=== PATIENT | female | born 1945 | race Caucasian/White ===

== ENCOUNTER 2017-11-13 15:15 | Observation (INO) ==
--- NOTE | 2017-11-13 18:18 | Emergency Department Note ---
Disposition Clinical Impression: DVT (deep venous thrombosis) Qualifiers: DVT location: lower extremity Affected thrombotic vein of extremity: unspecified vein of extremity Chronicity: unspecified Laterality: right Qualified Code(s): I82.401 - Acute embolism and thrombosis of unspecified deep veins of right lower extremity Chest pain Qualifiers: Chest pain type: unspecified Qualified Code(s): R07.9 - Chest pain, unspecified Disposition: Admitted As Inpatient Condition: Fair Time of Disposition: 22:27 Extremity Problem HPI - General Chief complaint: ED Extremity Problem,Nontraumatic Stated complaint: left leg pain,swelling Time Seen by Provider: 11/13/17 18:03 Source: patient Mode of arrival: ambulatory Limitations: no limitations Nursing Notes Reviewed: Yes Vital Signs Reviewed: Yes - History of Present Illness HPI Narrative: 72-year-old female history of diabetes and hypertension presents for evaluation of left leg pain and redness. Patient states onset initially was a couple weeks ago. At that time the patient states she had a biopsy of skin lesions on her left lower leg with resulting came back inconclusive. Patient has not seen a landscaping supervisor. Patient was seen at urgent care yesterday and was placed on antibiotics due to the redness and was discharged to get an ultrasound of the leg. Patient does note some asymmetric leg swelling. Patient denies history of DVT or PE. Patient reported some fevers. Patient denies any chest pain or breath. Patient states that she has had 3 doses of doxycycline did help with her left lower leg redness. Patient initially states that the lesions appeared purple and raised. Patient is also said that they were itchy but has since improved. Pain Scale: 6 - Related Data Home Medications Medication Instructions Recorded Confirmed Aspirin 81 mg PO DAILY 06/30/16 11/13/17 GlipiZIDE [Glipizide Xl] 5 mg PO DAILY 06/30/16 11/13/17 Isosorbide MONOnitrate (24 HR) 30 mg PO DAILY 06/30/16 11/13/17 [Imdur] Nitroglycerin 1 - 2 spray PO AD PRN 06/30/16 11/13/17 Omeprazole [PriLOSEC] 20 mg PO DAILY 06/30/16 11/13/17 Rosuvastatin [Crestor] 40 mg PO HS 06/30/16 11/13/17 Trazodone HCl 200 mg PO HS 06/30/16 11/13/17 Venlafaxine XR (24 HR) [Effexor Xr] 150 mg PO DAILY 06/30/16 11/13/17 carBAMazepine [Tegretol] 400 mg PO DAILY 06/30/16 11/13/17 metFORMIN [Glucophage] 1,000 mg PO BIDWM 06/30/16 11/13/17 Buspirone HCl [Buspar] 5 mg PO TID PRN 11/22/16 11/13/17 Irbesartan [Avapro] 150 mg PO DAILY 05/07/17 11/13/17 Oxybutynin Chloride [Ditropan Xl] 10 mg PO DAILY 05/07/17 11/13/17 amLODIPine [Norvasc] 5 mg PO DAILY 05/07/17 11/13/17 Magnesium Oxide [Mag-Ox] 400 mg PO DAILY 11/13/17 11/13/17 Melatonin 10 mg PO HS PRN 11/13/17 11/13/17 Metoprolol XL (24 HR) Succ [Toprol 25 mg PO DAILY 11/13/17 11/13/17 XL] Previous Rx's Medication Instructions Recorded Tamoxifen Citrate 20 mg PO DAILY #90 tablet 10/09/17 Doxycycline 100 mg PO BID #14 capsule 11/11/17 Allergies Allergy/AdvReac Type Severity Reaction Status Date / Time nabumetone [From Relafen] Allergy Rash Verified 11/13/17 15:36 Penicillins [PCN] Allergy See Verified 11/13/17 15:36 Comments Sulfa (Sulfonamide Allergy Rash Verified 11/13/17 15:36 Antibiotics) Tetanus Vaccines and Toxoid Allergy See Verified 11/13/17 15:36 [Tetanus Vaccines & Toxoid] Comments All systems ED: reviewed and negative except as stated. 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 Absent: symmetric chest wall rise - Respiratory Respiratory exam: Present: normal lung sounds bilaterally. Absent: respiratory distress - Cardiovascular Cardiovascular exam: Present: regular rate, normal rhythm. Absent: systolic murmur - Abdominal Exam Abdominal exam: Present: soft, Non-Tender - Expanded Lower Extremity Exam Lower leg exam: Present: other (Numerous excoriations of the left lower leg with faint erythema. No palpable purulent discharge. No crepitus. Neurovascularly intact. No calf tenderness.) - Back Exam Back exam: Present: normal inspection - Neurological Exam Neurological exam: Present: alert - Skin Skin exam: Present: warm Course Course Narrative: Patient seen and examined. Patient appears to be in no acute distress. Patient 's symptoms are less consistent with a DVT however that is in the differential. Patient will get a venous Doppler of her lower leg. Disposition pending. - Reevaluation(s) Reevaluation #1: Patient did have a positive DVT in the popliteal on the right leg. Patient now states that she has been having chest pain shortness of breath for the past 3 days. Denies history of blood clots in the past. Patient will get a more thorough cardiac evaluation with EKG, troponin and BNP as well as a CTA the chest. Time: 20:58 Reevaluation #2: Patient seen and examined. Patient updated on plan of care. Time: 22:48 Vital Signs Temperature 98.1 F 11/13/17 15:33 Pulse Rate 103 11/13/17 15:33 Respiratory Rate 20 11/13/17 15:33 Blood Pressure 153/73 11/13/17 15:33 O2 Sat by Pulse Oximetry 97 11/13/17 15:33 Temperature 98.1 F 11/13/17 15:33 Pulse Rate 82 11/13/17 21:43 Respiratory Rate 16 11/13/17 23:28 Blood Pressure 146/72 11/13/17 23:28 O2 Sat by Pulse Oximetry 99 11/13/17 21:43 Oxygen Delivery Oxygen Delivery Room Air Extremity Problem, Nontraumati - MDM Narrative Medical decision making narrative: 72-year-old female presents for evaluation of skin lesions on the lower leg. Through the course of the evaluation the patient was noted have a DVT which may or may not of an chronic in the popliteal. Patient's also been complaining of chest pain short of breath for the past 3 days. Patient was started on Lovenox. Patient had a CT of the chest was done revealing acute pulmonary embolism. Patient has been complaining of chest pain and would warrant more further cardiopulmonary evaluation. - Medical Records Medical records reviewed: Yes I reviewed the patient's medical records. - Lab Data Lab results reviewed: Yes I reviewed the patient's lab results. Result diagrams: 11/13/17 20:23 11/13/17 20:23 Lab Results 11/13/17 11/13/17 11/13/17 Range/Units 20:05 20:05 20:23 WBC 5.9 (4.3-11.1) K/mcL RBC 3.17 L (3.82-4.97) M/mcL Hgb 9.8 L (11.5-15.4) g/dL Hct 29.5 L (35.3-44.9) % MCV 93.1 (83.0-100.0) fL MCH 30.9 (28.0-33.3) pg MCHC 33.2 (31.6-35.5) g/dL RDW 12.4 (11.5-14.5) % Plt Count 169 (140-400) K/mcL MPV 9.7 (9.4-12.4) fL Immature Gran % 0.3 (0-4) % Seg Neutrophils % 48.4 % Lymphocytes % 34.7 % Monocytes % 9.1 % Eosinophils % 7.0 % Basophils % 0.5 % Neutrophils # 2.8 (1.6-8.9) K/mcL Lymphocytes # 2.0 (0.6-4.6) K/mcL Monocytes # 0.5 (0.0-1.3) K/mcL Eosinophils # 0.4 (0.0-0.6) K/mcL Basophils # 0.0 (0.0-0.2) K/mcL PT 11.7 (9.4-12.1) Seconds INR 1.1 APTT 24.6 L (26.0-36.0) Seconds Sodium (136-145) mEq/L Potassium (3.5-5.1) mEq/L Chloride (98-107) mEq/L Carbon Dioxide (23-29) mEq/L BUN (8-23) mg/dL Creatinine (0.60-1.20) mg/dL Est GFR ( Amer) (> 60) Est GFR (Non-Af Amer) (> 60) BUN/Creatinine Ratio (6-26) Glucose (70-105) mg/dL Calculated Osmolality (280-300) Calcium (8.6-10.3) mg/dL Troponin I (< 0.04) ng/mL B-Natriuretic Peptide 21 (Less than 100) pg/mL 11/13/17 Range/Units 20:23 WBC (4.3-11.1) K/mcL RBC (3.82-4.97) M/mcL Hgb (11.5-15.4) g/dL Hct (35.3-44.9) % MCV (83.0-100.0) fL MCH (28.0-33.3) pg MCHC (31.6-35.5) g/dL RDW (11.5-14.5) % Plt Count (140-400) K/mcL MPV (9.4-12.4) fL Immature Gran % (0-4) % Seg Neutrophils % % Lymphocytes % % Monocytes % % Eosinophils % % Basophils % % Neutrophils # (1.6-8.9) K/mcL Lymphocytes # (0.6-4.6) K/mcL Monocytes # (0.0-1.3) K/mcL Eosinophils # (0.0-0.6) K/mcL Basophils # (0.0-0.2) K/mcL PT (9.4-12.1) Seconds INR APTT (26.0-36.0) Seconds Sodium 137 (136-145) mEq/L Potassium 3.6 (3.5-5.1) mEq/L Chloride 103 (98-107) mEq/L Carbon Dioxide 25 (23-29) mEq/L BUN 21 (8-23) mg/dL Creatinine 1.05 (0.60-1.20) mg/dL Est GFR ( Amer) > 60 (> 60) Est GFR (Non-Af Amer) 52 L (> 60) BUN/Creatinine Ratio 20 (6-26) Glucose 174 H (70-105) mg/dL Calculated Osmolality 291 (280-300) Calcium 8.2 L (8.6-10.3) mg/dL Troponin I < 0.03 (< 0.04) ng/mL B-Natriuretic Peptide (Less than 100) pg/mL - EKG Data EKG attestation: Yes I reviewed and interpreted this EKG. EKG shows normal: sinus rhythm Rate: normal Rhythm: NSR [place]/QRS: normal Interpretation: no acute changes S.B.APernell - S.B.Michael Situation: Demographics Background: Presenting Complaint Assessment: Vital Signs, Course and respsone to treatment, Patient/Family Expectation Recommendation: Barrier(s) to disposition, Recommendation based on pending studies, treatments, or consults S.B.A.Sofia Report Given to: Dr. Liz Caba Repor Time: 22:27 Attestation Statement - Attestation Attestation: I examined this patient and my medical decision-making was reviewed with the Resident Physician, Dr. Rhodes. I agree with the documented findings, disposition and treatment plan as described except to the extent set forth below. Patient is a 72-year-old white female who presents to the emergency department today for complaints of left calf and posterior knee pain as well as swelling and redness. Patient was seen and had a skin biopsy performed a few weeks ago and since that time over the past few days she has developed some erythema warmth and some soft tissue swelling distal to the area on the anterolateral aspect of her lower leg. Patient was started on antibiotics by her primary care physician and patient states over the past 3 days has developed more sharp occasional stabbing pain to the left calf and posterior knee as well as reports of chest pain and dyspnea worsened with exertion. Patient has a history of diabetes and hypertension. Patient denies any prior DVT or PE and no prior cardiac history. I agree with patient's physical exam findings as documented. Patient with mild sinus tachycardia on arrival but otherwise vitals stable. Patient's EKG shows a normal sinus rhythm without acute ischemia. Patient had lab evaluation followed by a venous Doppler ultrasound. Doppler did show evidence of positive DVT which is a first time thrombus for the patient. GFR is within normal limits so we will treat with Lovenox. Due to patient's chest pain or shortness of breath patient underwent CT imaging of the chest which was unremarkable. Patient was given aspirin and will be admitted for further evaluation of DVT as well as serial enzymes and further evaluation for chest pain and shortness of breath. Case was discussed with the hospitalist to accept the patient for further medical management.
[2017-11-13 20:38] LABS: Basophils % 0.5 %; Eosinophils # 0.4 K/mcL (0.0-0.6); Hematocrit 29.5 % (35.3-44.9); Hemoglobin 9.8 g/dL (11.5-15.4); Immature Granulocytes % 0.3 % (0-4); Lymphocytes % 34.7 %; Mean Corpuscular HGB Conc 33.2 g/dL (31.6-35.5); Mean Corpuscular Hemoglobin 30.9 pg (28.0-33.3); Mean Corpuscular Volume 93.1 fL (83.0-100.0); Mean Platelet Volume 9.7 fL (9.4-12.4); Monocytes # 0.5 K/mcL (0.0-1.3); Monocytes % 9.1 %; Neutrophils # 2.8 K/mcL (1.6-8.9); Platelet Count 169 K/mcL (140-400); Red Blood Count 3.17 M/mcL (3.82-4.97); Red Cell Distribution Width 12.4 % (11.5-14.5); Segmented Neutrophils % 48.4 %
[2017-11-13] MEDS: Insulin LISPRO 300 UNITS/3 ML VIAL SQ SCH (21:00)
[2017-11-13 21:14] LABS: INR 1.1; Prothrombin Time 11.7 Seconds (9.4-12.1)
[2017-11-13 21:16] LABS: Activated Partial Thrombo Time 24.6 Seconds (26.0-36.0)
[2017-11-13 21:17] LABS: BUN/Creatinine Ratio 20 (6-26); Blood Urea Nitrogen 21 mg/dL (8-23); Calcium 8.2 mg/dL (8.6-10.3); Carbon Dioxide 25 mEq/L (23-29); Chloride 103 mEq/L (98-107); Glucose 174 mg/dL (70-105); Osmolality,Calculated 291 (280-300); Potassium 3.6 mEq/L (3.5-5.1); Sodium 137 mEq/L (136-145); eGFR For African Americans > 60 (> 60); eGFR For Non-African Americans 52 (> 60)
[2017-11-13 21:25] LABS: Troponin I < 0.03 ng/mL (< 0.04)
[2017-11-13] MEDS ORDERED: *HR* Enoxaparin 80 MG/0.8 ML SYRINGE SQ STA (22:24)
[2017-11-13] MEDS ORDERED: Aspirin 325 MG TABLET PO ONE (22:51)
[2017-11-13] MEDS ORDERED: *HR* Dextrose 50 % in Water (Syg) 50 ML SYRINGE IVP PRN (22:52)
[2017-11-13] MEDS ORDERED: Dextrose Gel 15 GM/37.5 ML TUBE PO PRN ×2 (22:52)
[2017-11-13] MEDS ORDERED: Naloxone 0.4 MG/ML INJ IVP PRN (22:52)
[2017-11-13] MEDS ORDERED: D5% in Water 1,000 ML IVC PRN (22:52)
[2017-11-13] MEDS ORDERED: Ondansetron 4 MG/2 ML VIAL IVP PRN (22:52)
--- NOTE | 2017-11-13 23:02 | Internal Med History&Physical ---
<Hu Verdugo - Last Filed: 11/13/17 22:57> Date of Encounter: 11/13/17 Time of Encounter: 22:57 Assessment and Plan (1) Chronic deep vein thrombosis (DVT) Current visit: Yes Status: Acute Presents today with Left lower extremity pain for 3 weeks. An Doppler US was completed with a preliminary result of LEFT LOWER EXTREMITY APPEARS POSITIVE CHRONIC PARTIAL DVT LEFT POPLITEAL ARTERY ONLY -Continue weight based lovenox; plan to change to PO xarelto prior to discharge Qualifiers: DVT location: lower extremity Affected thrombotic vein of extremity: other lower extremity vein Laterality: left Qualified Code(s): I82.592 - Chronic embolism and thrombosis of other specified deep vein of left lower extremity (2) Subacute dermatitis Current visit: Yes Status: Acute Multiple diffuse papular lesions on BLE. Recent biopsy reveals subacute dermatitis. Does not appear infective, lesions are not pruritic. Unclear if allergic or contact. -Topical steroids BID 2.5% hydrocortisone (3) Shortness of breath Current visit: Yes Status: Acute intermittent SOB X3 weeks. SOB is non-exertional. She denies any systemic symptoms, or coughs, chills, fevers or aches/pains. She does have a h/o anxiety and reports that she sometimes feels SOB when anxious. Not in respiratory distress, lungs CTA AP&L -Spo2 monitoring, respiratory support per NC PRN; goal Spo2 greater than 92% -TTE to r/o cardiac cause of shortness of breath -troponin f/u. Initial troponin negative -325 ASA now, then resume 81mg daily home dose -Duonebs Q4hr PRN for shortness of breath (4) Diabetes Current visit: Yes Status: Acute Sliding scale insulin coverage Qualifiers: Diabetes mellitus type: type 2 Diabetes mellitus complication status: without complication Diabetes mellitus ferry terminal supervisor insulin use: without ferry terminal supervisor use Qualified Code(s): E11.9 - Type 2 diabetes mellitus without complications (5) Anemia Current visit: Yes Status: Acute Chronic, stable. No active bleeding. Denies hematemesis, hematochezia or melena. Hemodynamically stable CBCD in the am Qualifiers: Anemia type: unspecified type Qualified Code(s): D64.9 - Anemia, unspecified (6) DVT prophylaxis Current visit: Yes Status: Acute weight based lovenox as the patient has a chronic DVT Internal Medicine - H&P: HPI Chief complaint: leg pain, intermittent shortness of breath Admitted From: Home Plans for Post Hospital Care: Home History of present illness: Ms. Florence is a 72 year old female with a PMH of DM, HTN, breast cancer, anxiety and depression. She presents to [facility] today with left leg pain and redness as well as multiple skin lesions. She reports that she has had the skin lesion for a couple of weeks and that she recently had a skin biopsy. The biopsy resulted in subacute dermatitis. Additionally, she is concerned as she has also had intermittent shortness of breath for the last three weeks. D/t the redness there is some concern for DVT and PE. CTA completed in ED found to be negative. Doppler study completed left lower extremity shows chronic DVT. Patient denies any constitutional symptoms, denies chest pain, abdominal pain, vomiting or diarrhea. However she does admit to some nausea. Past Med Surg Social Fam HX - Past Medical History Medical history: diabetes, hypertension, other Psychiatric history: anxiety, depression - Past Surgical History Surgical History: appendectomy, breast surgery, orthopedic, other - Social History Smoking Status: Never smoker Smokeless Tobacco Status: No Alcohol use: none Drug use: none - Additional Family History Additional family history: Noncontributory Internal Medicine - H&P: Meds Aspirin 81 mg PO DAILY 06/30/16 [History] GlipiZIDE [Glipizide Xl] 5 mg PO DAILY 06/30/16 [History] Isosorbide MONOnitrate (24 HR) [Imdur] 30 mg PO DAILY 06/30/16 [History] Nitroglycerin 1 - 2 spray PO AD PRN 06/30/16 [History] Omeprazole [PriLOSEC] 20 mg PO DAILY 06/30/16 [History] Rosuvastatin [Crestor] 40 mg PO HS 06/30/16 [History] Trazodone HCl 200 mg PO HS 06/30/16 [History] Venlafaxine XR (24 HR) [Effexor Xr] 150 mg PO DAILY 06/30/16 [History] carBAMazepine [Tegretol] 400 mg PO DAILY 06/30/16 [History] metFORMIN [Glucophage] 1,000 mg PO BIDWM 06/30/16 [History] Buspirone HCl [Buspar] 5 mg PO TID PRN 11/22/16 [History] Irbesartan [Avapro] 150 mg PO DAILY 05/07/17 [History] Oxybutynin Chloride [Ditropan Xl] 10 mg PO DAILY 05/07/17 [History] amLODIPine [Norvasc] 5 mg PO DAILY 05/07/17 [History] Tamoxifen Citrate 20 mg PO DAILY #90 tablet 10/09/17 [Rx] Doxycycline 100 mg PO BID #14 capsule 11/11/17 [Rx] Magnesium Oxide [Mag-Ox] 400 mg PO DAILY 11/13/17 [History] Melatonin 10 mg PO HS PRN 11/13/17 [History] Metoprolol XL (24 HR) Succ [Toprol XL] 25 mg PO DAILY 11/13/17 [History] 3 Allergy/AdvReac Type Severity Reaction Status Date / Time nabumetone [From Relafen] Allergy Rash Verified 11/13/17 15:36 Penicillins [PCN] Allergy See Verified 11/13/17 15:36 Comments Sulfa (Sulfonamide Allergy Rash Verified 11/13/17 15:36 Antibiotics) Tetanus Vaccines and Toxoid Allergy See Verified 11/13/17 15:36 [Tetanus Vaccines & Toxoid] Comments All Systems PM: A 10-system review of systems was performed and is negative for pertinent findings except as documented above in the HPI. Review of systems: REVIEW OF SYSTEMS GENERAL: Negative for any nausea, vomiting, fevers, chills, or weight loss. NEUROLOGIC: Negative for any blurry vision, blind spots, double vision, facial asymmetry, dysphagia, dysarthria, hemiparesis, hemisensory deficits, vertigo, ataxia. HEENT: Negative for any head trauma, neck trauma, neck stiffness, photophobia, phonophobia, sinusitis, rhinitis. CARDIAC: Negative for any chest pain, dyspnea on exertion, paroxysmal nocturnal dyspnea, peripheral edema. PULMONARY: Negative for any, wheezing, COPD, or TB exposure. Positive for intermittent shortness of breath not associated with activity GASTROINTESTINAL: Negative for any abdominal pain, nausea, vomiting, bright red blood per rectum, melena. GENITOURINARY: Negative for any dysuria, hematuria, incontinence. INTEGUMENTARY: Negative for any cuts, insect bites. Positive for multiple papular skin lesions bilateral lower extremities, and mild erythema RHEUMATOLOGIC: Negative for any joint pains, photosensitive rashes, history of vasculitis or kidney problems. HEMATOLOGIC: Negative for any abnormal bruising, frequent infections or bleeding. - Constitutional Vitals: Temp Pulse Resp BP Pulse Ox 98.1 F 82 18 134/88 99 11/13/17 15:33 11/13/17 21:43 11/13/17 21:43 11/13/17 21:43 11/13/17 21:43 General appearance: Present: cooperative, A&O X 3, no acute distress, answers questions appropriately - Head Head exam: Present: atraumatic, normocephalic - Eye Pupils: Present: PERRL - Neck Neck exam general surgery: Present: supple, trachea midline. Absent: lymphadenopathy - Respiratory Respiratory exam: Present: CTAB. Absent: accessory muscle use, rales, rhonchi, wheezes - Cardiovascular Cardiovascular exam: Present: RRR, +S1, +S2. Absent: diastolic murmur, gallop, rubs, systolic murmur - GI/Abdominal GI/Abdominal exam: Present: normal bowel sounds, soft, no peritoneal signs. Absent: distended, tenderness - Extremities Exam Extremities exam: Present: normal capillary refill, normal inspection, warm, radial pulses palpable and symmetrical. Absent: calf tenderness, cyanotic, joint swelling, pedal edema, tenderness - Neurological Exam Neurological exam: Present: CN II-XII intact, oriented X3, no focal deficits. Absent: pronater drift, facial droop, speech deficit - Skin Skin exam: Present: dry. Absent: intact - Expanded Skin Exam Distribution of rash: Present: RLE, LLE Description of rash: Present: papular. Absent: crusting, discharge, swelling, tenderness Internal Med - H&P Results - Labs CBC & Chem 7: 11/13/17 20:23 11/13/17 20:23 Labs: Short CBC 11/13/17 Range/Units 20:23 WBC 5.9 (4.3-11.1) K/mcL Hgb 9.8 L (11.5-15.4) g/dL Hct 29.5 L (35.3-44.9) % Plt Count 169 (140-400) K/mcL Neutrophils # 2.8 (1.6-8.9) K/mcL BMP 11/13/17 20:23 Sodium 137 Potassium 3.6 Chloride 103 Carbon Dioxide 25 BUN 21 Creatinine 1.05 Glucose 174 H Calcium 8.2 L Cardiac Enzymes 11/13/17 Range/Units 20:23 Troponin I < 0.03 (< 0.04) ng/mL - Impressions ITS Impressions Chest CTA 11/13/17 20:10 IMPRESSION: 1. No evidence of pulmonary embolism or aortic dissection. 2. Overall, no acute abnormality detected. D/ / Wm Albrecht MD / Wm Albrecht MD Interpreting Provider: Wm Albrecht MD <KoryLilibeth - Last Filed: 11/13/17 23:41> Date of Encounter: 11/13/17 Time of Encounter: 23:20 Internal Medicine - H&P: HPI History of present illness: Ms. Florence is a 72 year old female All Systems PM: A 10-system review of systems was performed and is negative for pertinent findings except as documented above in the HPI. - Constitutional Vitals: Temp Pulse Resp BP Pulse Ox 98.1 F 82 16 146/72 99 11/13/17 15:33 11/13/17 21:43 11/13/17 23:28 11/13/17 23:28 11/13/17 21:43 Internal Med - H&P Results - Labs CBC & Chem 7: 11/13/17 20:23 11/13/17 20:23 - Attending Attestation I examined this patient and my medical decision-making was reviewed with the Nurse Practitioner, Hu Verdugo. I agree with the documented findings, disposition and treatment plan as described except to the extent set forth below. 72-year-old female patient with history of breast cancer on tamoxifen therapy presented to the ER with complaints of left leg pain and swelling along with superficial redness. It seems to have gotten worse over the past week. She denies any prior history of DVT. No prior history of GI bleed. She did have intracerebral bleeding after trauma a few years back. She also has a history of CVA. Denies any fever or chills. Does complain of shortness of breath with exertion recently. No chest pain. No palpitations. Venous Doppler shows left popliteal been chronic DVT. CT angiogram PE protocol does not show any acute pulmonary embolism. DVT involving the left popliteal artery: Will place patient on Lovenox. No clear inciting event. Patient is on tamoxifen which can increase risk of DVT. Dyspnea on exertion: Etiology uncertain. Will get 2-D echocardiogram. BNP is normal. Diabetes mellitus type 2: Monitor blood sugars. Diabetic diet. Sliding scale insulin.
[2017-11-13] MEDS ORDERED: Ondansetron 4 MG/2 ML VIAL IVP ONE (23:06)
[2017-11-13] MEDS ORDERED: Ipratropium/Albuterol Neb 3 ML IH PRN (23:25)
[2017-11-14] MEDS: Melatonin 3 MG TABLET PO PRN ×2 (00:46→22:17)
[2017-11-14 00:48] LABS: Basophils % 0.6 %; Eosinophils # 0.5 K/mcL (0.0-0.6); Eosinophils % 7.8 %; Hematocrit 31.1 % (35.3-44.9); Hemoglobin 10.2 g/dL (11.5-15.4); Immature Granulocytes % 0.3 % (0-4); Lymphocytes # 2.5 K/mcL (0.6-4.6); Mean Corpuscular HGB Conc 32.8 g/dL (31.6-35.5); Mean Corpuscular Hemoglobin 30.4 pg (28.0-33.3); Mean Corpuscular Volume 92.8 fL (83.0-100.0); Mean Platelet Volume 9.6 fL (9.4-12.4); Monocytes # 0.6 K/mcL (0.0-1.3); Monocytes % 8.1 %; Neutrophils # 3.2 K/mcL (1.6-8.9); Platelet Count 171 K/mcL (140-400); Red Blood Count 3.35 M/mcL (3.82-4.97); Red Cell Distribution Width 12.5 % (11.5-14.5); Segmented Neutrophils % 46.2 %
[2017-11-14 01:22] LABS: BUN/Creatinine Ratio 20 (6-26); Blood Urea Nitrogen 20 mg/dL (8-23); Calcium 8.3 mg/dL (8.6-10.3); Carbon Dioxide 22 mEq/L (23-29); Chloride 103 mEq/L (98-107); Glucose 165 mg/dL (70-105); Osmolality,Calculated 286 (280-300); Potassium 3.9 mEq/L (3.5-5.1); Sodium 135 mEq/L (136-145); eGFR For African Americans > 60 (> 60); eGFR For Non-African Americans 56 (> 60)
[2017-11-14] MEDS ORDERED: *HR* Enoxaparin 80 MG/0.8 ML SYRINGE SQ SCH (06:00)
[2017-11-14] MEDS: Venlafaxine XR (24 HR) 150 MG CAP.ER.24H PO SCH (08:50)
[2017-11-14] MEDS: Magnesium Oxide 400 MG TABLET PO SCH (08:50)
[2017-11-14] MEDS: Isosorbide MONOnitrate (24 HR) 30 MG TAB.ER.24H PO SCH (08:50)
[2017-11-14] MEDS: Aspirin 81 MG TAB.CHEW PO SCH (08:51)
[2017-11-14] MEDS: amLODIPine 5 MG TABLET PO SCH (08:54)
[2017-11-14] MEDS: Insulin LISPRO 300 UNITS/3 ML VIAL SQ SCH ×4 (08:55→21:27)
[2017-11-14] MEDS ORDERED: carBAMazepine 200 MG TABLET PO SCH ×2 (09:00→21:00)
[2017-11-14] MEDS ORDERED: TAMOXIFEN CITRATE 20 MG PO SCH (09:00)
[2017-11-14] MEDS ORDERED: Metoprolol XL (24 HR) Succ 25 MG TAB.ER.24H PO SCH ×2 (09:00→21:00)
--- NOTE | 2017-11-14 11:34 | Internal Med Progress Note ---
Date of Encounter: 11/14/17 Time of Encounter: 11:30 - Assessment and plan (1) Chronic deep vein thrombosis (DVT) Current Visit: Yes Status: Acute Assessment and plan: switch to xarelto Per pharmacy, co-pay is 0 dollars Pending PTOT eval Pending onc eval no PE on CT scan ECHO is unremarkable Qualifiers: DVT location: lower extremity Affected thrombotic vein of extremity: other lower extremity vein Laterality: left Qualified Code(s): I82.592 - Chronic embolism and thrombosis of other specified deep vein of left lower extremity (2) Diabetes Current Visit: Yes Status: Chronic Assessment and plan: continue insulin, ADA diet, FS ACHS Qualifiers: Diabetes mellitus type: type 2 Diabetes mellitus complication status: without complication Diabetes mellitus shelter insulin use: without shelter use Qualified Code(s): E11.9 - Type 2 diabetes mellitus without complications (3) Shortness of breath Current Visit: Yes Status: Chronic Assessment and plan: chronic , non-specific Not hypoxic CTA normal ECHO normal Reassure (4) Subacute dermatitis Current Visit: Yes Status: Chronic Assessment and plan: chronic, per biopsy Continue home care - Subjective Interval history: Seen and evaluated at bedside Admitted to observation for newly diagnosed chronic DVT She is denying new complains She does have a a hx of Breast CA, Oncology was consulted by admitting team CTA shows no PE We will start her on xarelto and confirm with pharmacy regarding cost ECHO is pending, her chest is CTAB - Constitutional Vitals: Temp Pulse Resp BP Pulse Ox 97.7 F 92 18 117/68 98 11/14/17 11:04 11/14/17 11:04 11/14/17 11:04 11/14/17 11:04 11/14/17 11:04 General appearance: Present: cooperative, A&O X 3, no acute distress, answers questions appropriately - Head Head exam: Present: atraumatic, normocephalic - Eye Eye exam: Present: PERRL, conjuntiva pink, sclera anicteric Pupils: Present: PERRL - Neck Neck exam general surgery: Present: supple, trachea midline. Absent: lymphadenopathy - Respiratory Respiratory exam: Present: CTAB. Absent: accessory muscle use, rales, rhonchi, wheezes - Cardiovascular Cardiovascular exam: Present: RRR, +S1, +S2. Absent: diastolic murmur, gallop, rubs, systolic murmur - GI/Abdominal GI/Abdominal exam: Present: normal bowel sounds, soft, no peritoneal signs. Absent: distended, tenderness - Extremities Exam Additional comments: multiple spots looks like flea bites-patient denies her dog yee s fleas. LEet leg is warm and nontender - Neurological Exam Neurological exam: Present: alert, CN II-XII intact, oriented X3, no focal deficits. Absent: pronater drift, facial droop, speech deficit - Skin Skin exam: Present: dry, intact Internal Medicine: Result - Labs CBC & Chem 7: 11/14/17 00:36 11/14/17 00:36 Labs: Short CBC 11/14/17 Range/Units 00:36 WBC 6.8 (4.3-11.1) K/mcL Hgb 10.2 L (11.5-15.4) g/dL Hct 31.1 L (35.3-44.9) % Plt Count 171 (140-400) K/mcL Neutrophils # 3.2 (1.6-8.9) K/mcL BMP 11/14/17 00:36 Sodium 135 L Potassium 3.9 Chloride 103 Carbon Dioxide 22 L BUN 20 Creatinine 0.98 Glucose 165 H Calcium 8.3 L Cardiac Enzymes 11/14/17 Range/Units 00:36 Troponin I < 0.03 (< 0.04) ng/mL - ABG Interpretation ABG results: PT/INR, D-dimer PT 11.7 Seconds (9.4-12.1) 11/13/17 20:05 Consult Discharge Plan - Plan Referrals: Tisha Wagner, [employer] [Primary Care Provider] - Prescriptions: Rivaroxaban [Xarelto] 1 dose PO AD 30 Days #51 pack
[2017-11-14] MEDS ORDERED: *HR* Metformin 500 MG TABLET PO SCH (17:00)
[2017-11-14] MEDS: *HR* Rivaroxaban 15 MG TABLET PO SCH (17:43)
--- NOTE | 2017-11-14 19:58 | Electrocardiograph Report ---
[place] [address] Test Date: 2017-11-13 Pat Name: Saida Florence Department: 103 Room: [facility] Gender: F Graduate Teaching Associate: HUSAM : 1945 Requested By: May Real Order Number: [id number] Reading MD: Syd Lopes MD Measurements Intervals [place] Rate: 90 P: 57 SD: 144 QRS: 29 QRSD: 89 T: 43 QT: 363 QTc: 410 Interpretive Statements SINUS RHYTHM BASELINE ARTIFACT Electronically Signed On 11-14-2017 19:57:03 EST by Syd Lopes MD
[2017-11-14] MEDS ORDERED: traZODone 50 MG TABLET PO SCH (21:00)
[2017-11-15] MEDS ORDERED: *HR* GlipiZIDE XL (24 HR) 10 MG TABLET PO SCH (09:00)
[2017-11-15] MEDS: Insulin LISPRO 300 UNITS/3 ML VIAL SQ SCH ×2 (10:01→14:25)
[2017-11-15] MEDS: *HR* Rivaroxaban 15 MG TABLET PO SCH (10:03)
--- NOTE | 2017-11-15 10:03 | Physician Discharge Referral ---
Home Health/Hosp Referral Info Transfer to: Home Health Attending Provider: Onesimo Delgadillo Provider in Charge Post Discharge: PCP - Diagnosis (1) Chronic deep vein thrombosis (DVT) Priority: Primary Status: Acute (2) Diabetes Priority: Secondary Status: Chronic (3) Shortness of breath Priority: Primary Status: Resolved (4) Subacute dermatitis Priority: Primary Status: Chronic - Respiratory Orders Smoking Cessation: Smoking cessation has been advised. For more information, call the [place] Tobacco Quit Line at 4-662-QLNG-NOW. - Diet/Nutrition Diet/Nutrition Orders: Cardiac - Activity Activity Orders: Up ad montrell, Ambulate - Services Needed Following services are medically necessary services: Home Health Aide, Physical Therapy - Transfer Medications Prescriptions: Rivaroxaban [Xarelto] 1 dose PO AD 30 Days #51 pack Home Medications: Aspirin 81 mg PO DAILY 06/30/16 [History] GlipiZIDE [Glipizide Xl] 5 mg PO DAILY 06/30/16 [History] Isosorbide MONOnitrate (24 HR) [Imdur] 30 mg PO DAILY 06/30/16 [History] Nitroglycerin 1 - 2 spray PO AD PRN 06/30/16 [History] Omeprazole [PriLOSEC] 20 mg PO DAILY 06/30/16 [History] Rosuvastatin [Crestor] 40 mg PO HS 06/30/16 [History] Trazodone HCl 200 mg PO HS 06/30/16 [History] Venlafaxine XR (24 HR) [Effexor Xr] 150 mg PO DAILY 06/30/16 [History] carBAMazepine [Tegretol] 400 mg PO DAILY 06/30/16 [History] metFORMIN [Glucophage] 1,000 mg PO BIDWM 06/30/16 [History] Buspirone HCl [Buspar] 5 mg PO TID PRN 11/22/16 [History] Irbesartan [Avapro] 150 mg PO DAILY 05/07/17 [History] Oxybutynin Chloride [Ditropan Xl] 10 mg PO DAILY 05/07/17 [History] amLODIPine [Norvasc] 5 mg PO DAILY 05/07/17 [History] Tamoxifen Citrate 20 mg PO DAILY #90 tablet 10/09/17 [Rx] Magnesium Oxide [Mag-Ox] 400 mg PO DAILY 11/13/17 [History] Melatonin 10 mg PO HS PRN 11/13/17 [History] Metoprolol XL (24 HR) Succ [Toprol Xl] 25 mg PO DAILY 11/13/17 [History] Rivaroxaban [Xarelto] 1 dose PO AD 30 Days #51 pack 11/14/17 [Rx] Allergies/Adverse Reactions: 3 Allergy/AdvReac Type Severity Reaction Status Date / Time nabumetone [From Relafen] Allergy Rash Verified 11/13/17 15:36 Penicillins [PCN] Allergy See Verified 11/13/17 15:36 Comments Sulfa (Sulfonamide Allergy Rash Verified 11/13/17 15:36 Antibiotics) Tetanus Vaccines and Toxoid Allergy See Verified 11/13/17 15:36 [Tetanus Vaccines & Toxoid] Comments Certification: Further, I certify that my clinical findings support that this patient is homebound (i.e. absences from home require considerable and taxing effort and are for medical reasons or sabianism services or infrequently or short duration when for other reasons) because: Homebound Reason: Patient requires assistance of a person or device to safely leave home Attestation: My signature below is to certify that this patient is under my care and that I, or nurse practitioner, or a physician's assistant general manager working with me, has a face-to -face encounter with this patient.
[2017-11-15] MEDS: Isosorbide MONOnitrate (24 HR) 30 MG TAB.ER.24H PO SCH (10:04)
[2017-11-15] MEDS: Venlafaxine XR (24 HR) 150 MG CAP.ER.24H PO SCH (10:04)
[2017-11-15] MEDS: Magnesium Oxide 400 MG TABLET PO SCH (10:04)
[2017-11-15] MEDS: amLODIPine 5 MG TABLET PO SCH (10:04)
[2017-11-15] MEDS: Aspirin 81 MG TAB.CHEW PO SCH (10:04)
--- NOTE | 2017-11-15 10:05 | Discharge Summary ---
- NOTES TO OUTPATIENT PROVIDER Notes to Outpatient Provider: NEw diagnosis of chornic DVT, started on xarelto, unprovoked DVT, follow up with PCP Date of Encounter: 11/15/17 Time of Encounter: 10:04 - Discharge Diagnosis (1) Chronic deep vein thrombosis (DVT) Priority: Primary Status: Acute Qualifiers: DVT location: lower extremity Affected thrombotic vein of extremity: other lower extremity vein Laterality: left Qualified Code(s): I82.592 - Chronic embolism and thrombosis of other specified deep vein of left lower extremity (2) Diabetes Priority: Secondary Status: Chronic Qualifiers: Diabetes mellitus type: type 2 Diabetes mellitus complication status: without complication Diabetes mellitus long distance operator insulin use: without long distance operator use Qualified Code(s): E11.9 - Type 2 diabetes mellitus without complications (3) Shortness of breath Priority: Secondary Status: Chronic (4) Subacute dermatitis Priority: Secondary Status: Chronic Hospital course: Ms. Florence is a 72 year old female with history of breast cancer treated 5 years ago on tamoxifen, diabetes mellitus, hypertension. She presented with left lower extremity swelling over duration 3 weeks and shortness of breath. She was hemodynamically stable and did not have chest pain. Lower extremity Doppler shows a left popliteal chronic thrombosis with patent and maintained flow. CBC and chemistry were unremarkable. CT angiogram of the chest ruled out pulmonary embolism and showed no pneumonia. EKG was nonischemic. Her echocardiogram was normal for age. The patient was started on therapeutic Lovenox, and started on Zoloft after confirmation of 0 A pharmacy. She was also reviewed by physical and occupational therapy will have recommended home health. The patient already has home health services at home. The patient was seen and evaluated this morning, she has no complaints, she stated her shortness of breath has resolved and her left lower extremity pain is improving. She does have multiple spots on both legs that look like flea bites but the patient denies heart pets having fleas. There was no evidence of cellulitis on exam. She is medically stable to be discharged home on Zyvox for unprovoked left chronic DVT. Follow-up with primary care physician. She also needs to make an appointment to follow-up with her oncologist. Discharge discussed with: patient, nurse - Time Spent with Patient Total time spent providing and/or coordinating discharge services: Less than 30 minutes - Discharge Medications Prescriptions: Rivaroxaban [Xarelto] 1 dose PO AD 30 Days #51 pack Home Medications: Aspirin 81 mg PO DAILY 06/30/16 [History] GlipiZIDE [Glipizide Xl] 5 mg PO DAILY 06/30/16 [History] Isosorbide MONOnitrate (24 HR) [Imdur] 30 mg PO DAILY 06/30/16 [History] Nitroglycerin 1 - 2 spray PO AD PRN 06/30/16 [History] Omeprazole [PriLOSEC] 20 mg PO DAILY 06/30/16 [History] Rosuvastatin [Crestor] 40 mg PO HS 06/30/16 [History] Trazodone HCl 200 mg PO HS 06/30/16 [History] Venlafaxine XR (24 HR) [Effexor Xr] 150 mg PO DAILY 06/30/16 [History] carBAMazepine [Tegretol] 400 mg PO DAILY 06/30/16 [History] metFORMIN [Glucophage] 1,000 mg PO BIDWM 06/30/16 [History] Buspirone HCl [Buspar] 5 mg PO TID PRN 11/22/16 [History] Irbesartan [Avapro] 150 mg PO DAILY 05/07/17 [History] Oxybutynin Chloride [Ditropan Xl] 10 mg PO DAILY 05/07/17 [History] amLODIPine [Norvasc] 5 mg PO DAILY 05/07/17 [History] Tamoxifen Citrate 20 mg PO DAILY #90 tablet 10/09/17 [Rx] Magnesium Oxide [Mag-Ox] 400 mg PO DAILY 11/13/17 [History] Melatonin 10 mg PO HS PRN 11/13/17 [History] Metoprolol XL (24 HR) Succ [Toprol Xl] 25 mg PO DAILY 11/13/17 [History] Rivaroxaban [Xarelto] 1 dose PO AD 30 Days #51 pack 11/14/17 [Rx] Allergies/Adverse Reactions: 3 Allergy/AdvReac Type Severity Reaction Status Date / Time nabumetone [From Relafen] Allergy Rash Verified 11/13/17 15:36 Penicillins [PCN] Allergy See Verified 11/13/17 15:36 Comments Sulfa (Sulfonamide Allergy Rash Verified 11/13/17 15:36 Antibiotics) Tetanus Vaccines and Toxoid Allergy See Verified 11/13/17 15:36 [Tetanus Vaccines & Toxoid] Comments Date of admission: 11/13/17 23:17 Primary care physician: Tisha Wagner CNP Consults: 11/14/17 11:03 Consult to Occupational Therapy [CONS] Routine Comment: Evaluate, develop and implement POC Reason for Consult: multiple falls, eval and treat Consult to [employer] [CONS] Routine Reason for SW Consult: pt has had multiple falls, on xarelto at home. PT/OT eval ordered. Discharging clinician: Kehinde Delgadillo Anticipated date of discharge: 11/15/17 - Constitutional Vitals: Temp Pulse Resp BP Pulse Ox 98.2 F 78 16 119/67 98 11/15/17 06:31 11/15/17 06:31 11/15/17 06:31 11/15/17 06:31 11/15/17 06:31 General appearance: Present: cooperative, A&O X 3, no acute distress, answers questions appropriately - Head Head exam: Present: atraumatic, normocephalic - Eye Eye exam: Present: PERRL, conjuntiva pink, sclera anicteric Pupils: Present: PERRL - Neck Neck exam general surgery: Present: supple, trachea midline. Absent: lymphadenopathy - Respiratory Respiratory exam: Present: CTAB. Absent: accessory muscle use, rales, rhonchi, wheezes - Cardiovascular Cardiovascular exam: Present: RRR, +S1, +S2. Absent: diastolic murmur, gallop, rubs, systolic murmur - GI/Abdominal GI/Abdominal exam: Present: normal bowel sounds, soft, no peritoneal signs. Absent: distended, tenderness - Extremities Exam Additional comments: multiple flea bites, no cellulitis - Neurological Exam Neurological exam: Present: alert, CN II-XII intact, oriented X3, no focal deficits. Absent: pronater drift, facial droop, speech deficit - Skin Skin exam: Present: dry, intact - Patient Status Disposition: Home Health Service Condition: Good Functional capacity at discharge: independent ambulation Overall status at discharge: patient is back to baseline - Discharge Instructions Follow Up With: Tisha Wagner CNP [Primary Care Provider] - - Diet and Activity Activity: resume usual activities as tolerated Diet: diabetic diet
[2017-11-15 11:47] VITALS: BP 126/78
[2017-11-16] MEDS ORDERED: *HR* GlipiZIDE XL (24 HR) 2.5 MG TABLET PO SCH (09:00)
== END 2017-11-15 15:15 | disposition home health service (06) ==
LOC: 3NENU 15:15 → EMEROO 15:15 → 3NENU 23:28
PROVIDERS: ADMIT Nurse Practitioner; ATTEND Internal Medicine

== ENCOUNTER 2018-07-29 12:24 | Observation (INO) ==
--- NOTE | 2018-07-29 12:43 | Emergency Department Note ---
Disposition Clinical Impression: Chest pain Qualifiers: Chest pain type: unspecified Qualified Code(s): R07.9 - Chest pain, unspecified Disposition: Admitted As Inpatient Condition: Good Time of Disposition: 13:23 General Adult HPI - General Stated complaint: CP Time Seen by Provider: 07/29/18 12:25 Source: patient, EMS Mode of arrival: EMS Limitations: no limitations Nursing Notes Reviewed: Yes Vital Signs Reviewed: Yes - History of Present Illness HPI Narrative: Patient is a 72-year-old female that presents emergency department via EMS for chest pain. Patient states that the chest pain is located in the middle left side of her chest underneath her left breast and feels like a squeezing sensation. Patient states that it does radiate up into her neck and shoulder and down into her left arm. Patient states that she has had pain like this before but has never had a previous heart attack. Patient states that she has not had any stents placed but has had a previous catheterization but is unsure exactly when this was. Patient states that she is not having any active shortness of breath but was earlier. Patient states that she denies any nausea, vomiting or diaphoresis. Pain Scale: 7 - Related Data Home Medications Medication Instructions Recorded Confirmed Aspirin 81 mg PO DAILY 06/30/16 07/29/18 Omeprazole [PriLOSEC] 20 mg PO DAILY 06/30/16 07/29/18 Rosuvastatin [Crestor] 40 mg PO HS 06/30/16 07/29/18 Venlafaxine XR (24 HR) [Effexor Xr] 150 mg PO DAILY 06/30/16 07/29/18 carBAMazepine [Tegretol] 400 mg PO QPM 06/30/16 07/29/18 metFORMIN [Glucophage] 1,000 mg PO BIDWM 06/30/16 07/29/18 Buspirone HCl [Buspar] 5 mg PO TID PRN 11/22/16 07/29/18 Irbesartan [Avapro] 150 mg PO DAILY 05/07/17 07/29/18 Oxybutynin Chloride [Ditropan Xl] 10 mg PO DAILY 05/07/17 07/29/18 amLODIPine [Norvasc] 5 mg PO DAILY 05/07/17 07/29/18 Metoprolol XL (24 HR) Succ [Toprol 25 mg PO DAILY 11/13/17 07/29/18 Xl] Isosorbide MONOnitrate (24 HR) 60 mg PO DAILY 07/29/18 07/29/18 [Imdur] Nitroglycerin 1 - 2 spray PO Q5MIN 07/29/18 07/29/18 Saxagliptin HCl [Onglyza] 5 mg PO DAILY 07/29/18 07/29/18 Trazodone HCl 200 mg PO HS 07/29/18 07/29/18 Previous Rx's Medication Instructions Recorded Apixaban [Eliquis] 5 mg PO BID #60 tablet 02/22/18 Cyanocobalamin (Vitamin B-12) 2,500 mcg PO DAILY #30 tab.chew 05/27/18 [Vitamin B12] Allergies Allergy/AdvReac Type Severity Reaction Status Date / Time nabumetone [From Relafen] Allergy Rash Verified 07/29/18 14:36 Penicillins [PCN] Allergy See Verified 07/29/18 14:36 Comments Sulfa (Sulfonamide Allergy Rash Verified 07/29/18 14:36 Antibiotics) Tetanus Vaccines and Toxoid Allergy See Verified 07/29/18 14:36 [Tetanus Vaccines & Toxoid] Comments All systems ED: reviewed and negative except as stated. Constitutional: Denies: fever Cardiovascular: Reports: chest pain Respiratory: Reports: dyspnea Gastrointestinal: Denies: nausea, vomiting Past Medical History - Past Medical History Medical history: Reports: cancer, DVT, diabetes, hypertension, other Surgical history: Reports: appendectomy, breast surgery, orthopedic, other Psychiatric history: Reports: anxiety, depression FOUR HORSE HITCH DRIVER history: Reports: no FOUR HORSE HITCH DRIVER history, non-contributory - Social History Smoking Status: Never smoker Smokeless Tobacco Status: No Alcohol use: Reports: none Drug use: Reports: none Physical Exam - General Limitations: no limitations General appearance: alert, in no apparent distress - Head Head exam: atraumatic, normocephalic - Eye Eye exam: Present: normal appearance, EOMI - Neck Neck exam: Present: normal inspection, full ROM, trachea midline - Respiratory Respiratory exam: Present: normal lung sounds bilaterally. Absent: respiratory distress, wheezes - Cardiovascular Cardiovascular exam: Present: normal rhythm, tachycardia, normal heart sounds, +S1, +S2 - Abdominal Exam Abdominal exam: Present: soft, Non-Tender, normal bowel sounds - Neurological Exam Neurological exam: Present: alert, oriented X3 - Psychiatric Psychiatric exam: Present: normal affect, normal mood - Skin Skin exam: Present: warm, dry, intact Course Vital Signs Temperature 99.5 F 07/29/18 12:33 Pulse Rate 108 07/29/18 12:33 Respiratory Rate 17 07/29/18 12:33 Blood Pressure 131/75 07/29/18 12:33 O2 Sat by Pulse Oximetry 98 07/29/18 12:33 Temperature 99.5 F 07/29/18 12:33 Pulse Rate 99 07/29/18 13:31 Respiratory Rate 19 07/29/18 13:31 Blood Pressure 115/65 07/29/18 13:31 O2 Sat by Pulse Oximetry 98 07/29/18 13:31 Oxygen Delivery Oxygen Delivery Room Air Medical Decision Making - MDM Narrative Medical decision making narrative: Due to the patient presenting to the emergency department for chest pain we will obtain basic laboratory testing: CBC, BMP, troponin chest x-ray and EKG. Patient's laboratory testing was relatively unremarkable. Chest x-ray was negative. EKG did not show any acute ischemic changes. Troponin was negative. However basin the patient having acute onset of her symptoms this morning and having a heart score of 4 feel that it is necessary for the patient to be admitted to the hospital at this time for further evaluation and management of her chest pain. I called and spoke with the admitting hospitalist Dr. Leona serrano nd she has accepted the patient to their service. Patient will be admitted to the hospital at this time for further evaluation and management. - Medical Records Medical records reviewed: Yes I reviewed the patient's medical records. - Lab Data Lab results reviewed: Yes I reviewed the patient's lab results. Result diagrams: 07/29/18 12:41 07/29/18 12:41 Lab Results 07/29/18 07/29/18 07/29/18 Range/Units 12:41 12:41 12:41 WBC 6.7 (4.3-11.1) K/mcL RBC 3.63 L (3.82-4.97) M/mcL Hgb 11.8 (11.5-15.4) g/dL Hct 35.6 (35.3-44.9) % MCV 98.1 (83.0-100.0) fL MCH 32.5 (28.0-33.3) pg MCHC 33.1 (31.6-35.5) g/dL RDW 11.5 (11.5-14.5) % Plt Count 174 (140-400) K/mcL MPV 9.2 L (9.4-12.4) fL Immature Gran % 0.4 (0-4) % Seg Neutrophils % 63.4 % Lymphocytes % 26.9 % Monocytes % 7.2 % Eosinophils % 1.5 % Basophils % 0.6 % Neutrophils # 4.2 (1.6-8.9) K/mcL Lymphocytes # 1.8 (0.6-4.6) K/mcL Monocytes # 0.5 (0.0-1.3) K/mcL Eosinophils # 0.1 (0.0-0.6) K/mcL Basophils # 0.0 (0.0-0.2) K/mcL PT 16.5 H (9.4-12.1) Seconds INR 1.5 D-Dimer < 215 (0-500) ng/mLFEU Sodium 137 (136-145) mEq/L Potassium 4.7 (3.5-5.1) mEq/L Chloride 103 (98-107) mEq/L Carbon Dioxide 25 (23-29) mEq/L BUN 28 H (8-23) mg/dL Creatinine 0.94 (0.60-1.20) mg/dL Est GFR ( Amer) > 60 (> 60) Est GFR (Non-Af Amer) 59 L (> 60) BUN/Creatinine Ratio 30 H (6-26) Glucose 119 H (70-105) mg/dL Calculated Osmolality 291 (280-300) Calcium 8.8 (8.6-10.3) mg/dL Troponin I < 0.03 (< 0.04) ng/mL - Radiology Data Radiology results reviewed: Yes I reviewed the patient's radiology results. Chest X-Ray 07/29/18 12:34 IMPRESSION: No acute cardiopulmonary process identified. D/ / Enrico Flores MD / Enrico Flores MD Interpreting Provider: Enrico Flores MD - EKG Data EKG #1 EKG attestation: Yes I reviewed and interpreted this EKG. EKG results narrative: EKG shows a sinus tachycardia at a rate of 104 bpm, OR interval 130, QRS duration of 87, QTc of 446. No evidence of STEMI on EKG. This is compared to previous EKG on 11/13/17 which showed a sinus rhythm and rate of 90 bpm.
[2018-07-29 12:48] LABS: Basophils % 0.6 %; Eosinophils # 0.1 K/mcL (0.0-0.6); Eosinophils % 1.5 %; Hematocrit 35.6 % (35.3-44.9); Hemoglobin 11.8 g/dL (11.5-15.4); Immature Granulocytes % 0.4 % (0-4); Lymphocytes # 1.8 K/mcL (0.6-4.6); Lymphocytes % 26.9 %; Mean Corpuscular HGB Conc 33.1 g/dL (31.6-35.5); Mean Corpuscular Hemoglobin 32.5 pg (28.0-33.3); Mean Corpuscular Volume 98.1 fL (83.0-100.0); Mean Platelet Volume 9.2 fL (9.4-12.4); Monocytes # 0.5 K/mcL (0.0-1.3); Monocytes % 7.2 %; Neutrophils # 4.2 K/mcL (1.6-8.9); Platelet Count 174 K/mcL (140-400); Red Blood Count 3.63 M/mcL (3.82-4.97); Red Cell Distribution Width 11.5 % (11.5-14.5); Segmented Neutrophils % 63.4 %
[2018-07-29 12:58] LABS: INR 1.5; Prothrombin Time 16.5 Seconds (9.4-12.1)
[2018-07-29] MEDS ORDERED: Aspirin 81 MG TAB.CHEW PO STA (13:04)
[2018-07-29 13:08] LABS: D-Dimer < 215 ng/mLFEU (0-500)
--- NOTE | 2018-07-29 13:12 | Emergency Department Note ---
Disposition Clinical Impression: Chest pain Qualifiers: Chest pain type: unspecified Qualified Code(s): R07.9 - Chest pain, unspecified Disposition: Admitted As Inpatient Condition: Good General Adult HPI - General Chief complaint: ED Chest Pain Stated complaint: CP Time Seen by Provider: 07/29/18 12:25 Source: patient, EMS Mode of arrival: EMS Limitations: no limitations - History of Present Illness Pain Scale: 7 - Related Data Home Medications Medication Instructions Recorded Confirmed Aspirin 81 mg PO DAILY 06/30/16 07/29/18 Omeprazole [PriLOSEC] 20 mg PO DAILY 06/30/16 07/29/18 Rosuvastatin [Crestor] 40 mg PO HS 06/30/16 07/29/18 Venlafaxine XR (24 HR) [Effexor Xr] 150 mg PO DAILY 06/30/16 07/29/18 carBAMazepine [Tegretol] 400 mg PO QPM 06/30/16 07/29/18 metFORMIN [Glucophage] 1,000 mg PO BIDWM 06/30/16 07/29/18 Buspirone HCl [Buspar] 5 mg PO TID PRN 11/22/16 07/29/18 Irbesartan [Avapro] 150 mg PO DAILY 05/07/17 07/29/18 Oxybutynin Chloride [Ditropan Xl] 10 mg PO DAILY 05/07/17 07/29/18 amLODIPine [Norvasc] 5 mg PO DAILY 05/07/17 07/29/18 Metoprolol XL (24 HR) Succ [Toprol 25 mg PO DAILY 11/13/17 07/29/18 Xl] Isosorbide MONOnitrate (24 HR) 60 mg PO DAILY 07/29/18 07/29/18 [Imdur] Nitroglycerin 1 - 2 spray PO Q5MIN 07/29/18 07/29/18 Saxagliptin HCl [Onglyza] 5 mg PO DAILY 07/29/18 07/29/18 Trazodone HCl 200 mg PO HS 07/29/18 07/29/18 Previous Rx's Medication Instructions Recorded Apixaban [Eliquis] 5 mg PO BID #60 tablet 02/22/18 Cyanocobalamin (Vitamin B-12) 2,500 mcg PO DAILY #30 tab.chew 05/27/18 [Vitamin B12] Allergies Allergy/AdvReac Type Severity Reaction Status Date / Time nabumetone [From Relafen] Allergy Rash Verified 07/29/18 14:36 Penicillins [PCN] Allergy See Verified 07/29/18 14:36 Comments Sulfa (Sulfonamide Allergy Rash Verified 07/29/18 14:36 Antibiotics) Tetanus Vaccines and Toxoid Allergy See Verified 07/29/18 14:36 [Tetanus Vaccines & Toxoid] Comments Constitutional: Denies: fever Cardiovascular: Reports: chest pain Respiratory: Reports: dyspnea Gastrointestinal: Denies: nausea, vomiting Past Medical History - Past Medical History Medical history: Reports: cancer, DVT, diabetes, hypertension, other Surgical history: Reports: appendectomy, breast surgery, orthopedic, other Psychiatric history: Reports: anxiety, depression NURSE SCHOOL history: Reports: no NURSE SCHOOL history, non-contributory - Social History Smoking Status: Never smoker Smokeless Tobacco Status: No Alcohol use: Reports: none Drug use: Reports: none Physical Exam - General Limitations: no limitations General appearance: alert, in no apparent distress Course Vital Signs Temperature 99.5 F 07/29/18 12:33 Pulse Rate 108 07/29/18 12:33 Respiratory Rate 17 07/29/18 12:33 Blood Pressure 131/75 07/29/18 12:33 O2 Sat by Pulse Oximetry 98 07/29/18 12:33 Temperature 99.5 F 07/29/18 12:33 Pulse Rate 99 07/29/18 13:31 Respiratory Rate 19 07/29/18 13:31 Blood Pressure 115/65 07/29/18 13:31 O2 Sat by Pulse Oximetry 98 07/29/18 13:31 Oxygen Delivery Oxygen Delivery Room Air Medical Decision Making - Lab Data Result diagrams: 07/29/18 12:41 07/29/18 12:41 Lab Results 07/29/18 07/29/18 07/29/18 Range/Units 12:41 12:41 12:41 WBC 6.7 (4.3-11.1) K/mcL RBC 3.63 L (3.82-4.97) M/mcL Hgb 11.8 (11.5-15.4) g/dL Hct 35.6 (35.3-44.9) % MCV 98.1 (83.0-100.0) fL MCH 32.5 (28.0-33.3) pg MCHC 33.1 (31.6-35.5) g/dL RDW 11.5 (11.5-14.5) % Plt Count 174 (140-400) K/mcL MPV 9.2 L (9.4-12.4) fL Immature Gran % 0.4 (0-4) % Seg Neutrophils % 63.4 % Lymphocytes % 26.9 % Monocytes % 7.2 % Eosinophils % 1.5 % Basophils % 0.6 % Neutrophils # 4.2 (1.6-8.9) K/mcL Lymphocytes # 1.8 (0.6-4.6) K/mcL Monocytes # 0.5 (0.0-1.3) K/mcL Eosinophils # 0.1 (0.0-0.6) K/mcL Basophils # 0.0 (0.0-0.2) K/mcL PT 16.5 H (9.4-12.1) Seconds INR 1.5 D-Dimer < 215 (0-500) ng/mLFEU Sodium 137 (136-145) mEq/L Potassium 4.7 (3.5-5.1) mEq/L Chloride 103 (98-107) mEq/L Carbon Dioxide 25 (23-29) mEq/L BUN 28 H (8-23) mg/dL Creatinine 0.94 (0.60-1.20) mg/dL Est GFR ( Amer) > 60 (> 60) Est GFR (Non-Af Amer) 59 L (> 60) BUN/Creatinine Ratio 30 H (6-26) Glucose 119 H (70-105) mg/dL Calculated Osmolality 291 (280-300) Calcium 8.8 (8.6-10.3) mg/dL Troponin I < 0.03 (< 0.04) ng/mL Attestation Statement - Attestation Attestation: I examined this patient and my medical decision-making was reviewed with the Resident Physician. I agree with the documented findings, disposition and treatment plan as described except to the extent set forth below. Patient presents to the ED with chest pain. Patient with left-sided pain she describes as a squeezing sensation. It radiates to her neck and left arm. Patient denies any history of VT or stents. She is in no distress on examination awake and alert. Heart regular lungs clear. Plan. Cardiac workup. Cardiac workup is negative. Patient is admitted for further workup secondary to risk factors. Chest X-Ray 07/29/18 12:34 IMPRESSION: No acute cardiopulmonary process identified. D/ / Enrico Flores MD / Enrico Flores MD Interpreting Provider: Enrico Flores MD
[2018-07-29 13:16] LABS: Troponin I < 0.03 ng/mL (< 0.04)
[2018-07-29 13:17] LABS: BUN/Creatinine Ratio 30 (6-26); Blood Urea Nitrogen 28 mg/dL (8-23); Calcium 8.8 mg/dL (8.6-10.3); Carbon Dioxide 25 mEq/L (23-29); Chloride 103 mEq/L (98-107); Glucose 119 mg/dL (70-105); Osmolality,Calculated 291 (280-300); Potassium 4.7 mEq/L (3.5-5.1); Sodium 137 mEq/L (136-145); eGFR For Non-African Americans 59 (> 60)
[2018-07-29] MEDS ORDERED: traMADol 50 MG TABLET PO PRN (14:23)
[2018-07-29] MEDS ORDERED: Naloxone 0.4 MG/ML INJ IVP PRN (14:23)
[2018-07-29] MEDS ORDERED: Dextrose Gel 15 GM/37.5 ML TUBE PO PRN ×2 (14:27)
[2018-07-29] MEDS ORDERED: D5% in Water 1,000 ML IVC PRN (14:27)
[2018-07-29] MEDS ORDERED: *HR* Dextrose 50 % in Water (Syg) 50 ML SYRINGE IVP PRN (14:27)
[2018-07-29 15:30] LABS: Chol/HDL Ratio 2.8 (0-4.9); Cholesterol 182 mg/dL (< 200); Estimated Average Glucose 123 mg/dl; HDL Cholesterol 66 mg/dL (40-59); Hemoglobin A1C 5.9 %; LDL Cholesterol,Calculated 85 mg/dL (0-99); Triglycerides 157 mg/dL (< 150)
--- NOTE | 2018-07-29 15:40 | Internal Med History&Physical ---
Date of Encounter: 07/29/18 Time of Encounter: 15:35 Internal Medicine - H&P: HPI Chief complaint: chest pain Plans for Post Hospital Care: Home History of present illness: Ms. Florence is a 72 year old female past medical history significant for type 2 diabetes, hypertension, history of breast cancer, depression, DVT, coronary artery disease and angina. Patient presented to the emergency room due to chest pain. Patient reports that since Sunday last week she has been having squeezing, intermittent retrosternal /10/ chest pain, lasting about 2 minutes radiating to her left jaw and left shoulder, associated with shortness of breath. Reports that on Sunday she was tachycardic, HR 140, BP 90/60, when she was having chest pain, she called her cardiology who recommended to come to the ED but she took some aspirin and the pain subsided. Today she had a similar episode of chest pain associated with diaphoresis for which she decided to present to the ED. denies abdominal pain, nausea and vomiting. Past Med Surg Social Fam HX - Past Medical History Medical history: cancer, DVT, diabetes, hypertension, other Additional medical history: Insomnia/Depression. Rheumatic fever. Breast cancer. vitamin B12 deficiency anemia Psychiatric history: anxiety, depression - Past Surgical History Surgical History: appendectomy, breast surgery, orthopedic, other Additional surgical history: tubal ligation. neck surgery. cyst removed jose r breast. right shoulder scope,rotator cuff repair - Social History Smoking Status: Never smoker Smokeless Tobacco Status: No Alcohol use: none Drug use: none - Family History Mother Living Status: Hx Family Cardiac Disorders: Yes Hx Family Cancer: Yes Internal Medicine - H&P: Meds Aspirin 81 mg PO DAILY 06/30/16 [History] Omeprazole [PriLOSEC] 20 mg PO DAILY 06/30/16 [History] Rosuvastatin [Crestor] 40 mg PO HS 06/30/16 [History] Venlafaxine XR (24 HR) [Effexor Xr] 150 mg PO DAILY 06/30/16 [History] carBAMazepine [Tegretol] 400 mg PO QPM 06/30/16 [History] metFORMIN [Glucophage] 1,000 mg PO BIDWM 06/30/16 [History] Buspirone HCl [Buspar] 5 mg PO TID PRN 11/22/16 [History] Irbesartan [Avapro] 150 mg PO DAILY 05/07/17 [History] Oxybutynin Chloride [Ditropan Xl] 10 mg PO DAILY 05/07/17 [History] amLODIPine [Norvasc] 5 mg PO DAILY 05/07/17 [History] Metoprolol XL (24 HR) Succ [Toprol Xl] 25 mg PO DAILY 11/13/17 [History] Apixaban [Eliquis] 5 mg PO BID #60 tablet 02/22/18 [Rx] Cyanocobalamin (Vitamin B-12) [Vitamin B12] 2,500 mcg PO DAILY #30 tab.chew 05/27/18 [Rx] Isosorbide MONOnitrate (24 HR) [Imdur] 60 mg PO DAILY 07/29/18 [History] Nitroglycerin 1 - 2 spray PO Q5MIN 07/29/18 [History] Saxagliptin HCl [Onglyza] 5 mg PO DAILY 07/29/18 [History] Trazodone HCl 200 mg PO HS 07/29/18 [History] Allergy/AdvReac Type Severity Reaction Status Date / Time nabumetone [From Relafen] Allergy Rash Verified 07/29/18 14:36 Penicillins [PCN] Allergy See Verified 07/29/18 14:36 Comments Sulfa (Sulfonamide Allergy Rash Verified 07/29/18 14:36 Antibiotics) Tetanus Vaccines and Toxoid Allergy See Verified 07/29/18 14:36 [Tetanus Vaccines & Toxoid] Comments All Systems PM: A 10-system review of systems was performed and is negative for pertinent findings except as documented above in the HPI. - Constitutional Constitutional: no chills, no fever(s), no lethargy, no weakness - Cardiovascular Cardiovascular ROS IM: chest pain, no dyspnea on exertion, no irregular heart rhythm, no lightheadedness, no orthopnea, no palpitations, no paroxysmal nocturnal dyspnea, no syncope - Respiratory Respiratory: no cough, no dyspnea, no wheezing - Gastrointestinal Gastrointestinal: no constipation, no hematemesis, no loose stools, no melena, no nausea, no vomiting - Genitourinary Genitourinary: no nocturia, no pelvic pain, no urinary frequency, no urinary urgency, no vaginal pruritis - Musculoskeletal Musculoskeletal ROS IM: no back pain - Integumentary Integumentary IM: no pruritus - Neurological Neurological ROS: no lack of coordination, no numbness, no vertigo, no weakness - Psychiatric Psychiatric: no hallucinations, no homicidal ideation, no visual hallucinations - Endocrine Endocrine IM: no polydipsia, no polyphagia, no polyuria - Hematologic/Lymphatic Hematologic/Lymphatic: no easy bruising - Allergic/Immunologic Allergic/Immunologic: no wheezing Additional comments: Rest of the review of system negative. - Constitutional Vitals: Temp Pulse Resp BP Pulse Ox 99.5 F 99 19 115/65 98 07/29/18 12:33 07/29/18 13:31 07/29/18 13:31 07/29/18 13:31 07/29/18 13:31 Exam: Vitals: Reviewed. General: Alert and orientedx4. In mild distress due to chest discomfort. Skin: Normal color, no rash, no lesions. HEENT: EOM, pupils equal, round and reactive. Cardiovascular: RRR, Normal S1 & S2, no rubs, murmurs or gallops. Lungs: CTA b/l. no wheezes or crackles. Abdomen: Soft, non-tender, no rigidity. Extremities: No deformity, no edema or tenderness, no joint swelling or clubbing. Neurological: Normal cognition and motor skills. Rest of the physical exam is non contributory Internal Med - H&P Results - Labs CBC & Chem 7: 07/29/18 12:41 07/29/18 12:41 Labs: Short CBC 07/29/18 Range/Units 12:41 WBC 6.7 (4.3-11.1) K/mcL Hgb 11.8 (11.5-15.4) g/dL Hct 35.6 (35.3-44.9) % Plt Count 174 (140-400) K/mcL Neutrophils # 4.2 (1.6-8.9) K/mcL BMP 07/29/18 12:41 Sodium 137 Potassium 4.7 Chloride 103 Carbon Dioxide 25 BUN 28 H Creatinine 0.94 Glucose 119 H Calcium 8.8 Cardiac Enzymes 07/29/18 Range/Units 12:41 Troponin I < 0.03 (< 0.04) ng/mL - Impressions ITS Impressions Chest X-Ray 07/29/18 12:34 IMPRESSION: No acute cardiopulmonary process identified. D/ / Enrico Flores MD / Enrico Flores MD Interpreting Provider: Enrico Flores MD - Diagnostic Studies Chest x-ray Status: image reviewed by me Additional comments: No acute process identified. - Assessment and plan (1) Chest pain Current Visit: Yes Status: Acute Assessment and plan: Atypical chest pain. Plan place under-observation serial troponin nuclear stress test Nitroglycerin 0.4mg SubL Q5min x5 for chest pain limited TTE to evaluate valvular or wall motion abnormalities consider cardiology consult if symptoms persist. Aspirin 325mg/PO x1 given follow by aspirin 81mg/PO daily On metoprolol 25mg/PO daily anticoagulated on eliquis due to DVT, will continue Lipid panel. Qualifiers: Chest pain type: unspecified Qualified Code(s): R07.9 - Chest pain, unspecified (2) Hyperlipidemia Current Visit: Yes Status: Chronic Assessment and plan: Continue atorvastatin 40 mg by mouth daily. Qualifiers: Hyperlipidemia type: unspecified Qualified Code(s): E78.5 - Hyperlipidemia, unspecified (3) Hypertension Current Visit: Yes Status: Chronic Assessment and plan: Will resume home medications. Patient on metoprolol 25mg/PO daily, plus Isosorbide 60mg/PO daily Qualifiers: Hypertension type: unspecified Qualified Code(s): I10 - Essential (primary) hypertension (4) Chronic deep vein thrombosis (DVT) Current Visit: No Status: Chronic Assessment and plan: On eliquis 5mg/PO BID. will continue home dose. Qualifiers: DVT location: lower extremity Affected thrombotic vein of extremity: other lower extremity vein Laterality: left Qualified Code(s): I82.592 - Chronic embolism and thrombosis of other specified deep vein of left lower extremity (5) Diabetes Current Visit: No Status: Chronic Assessment and plan: well controlled. A1C of 5.9 carb controlled diet levemir 5 units HS and Lispro low dose sliding scale ac Qualifiers: Diabetes mellitus type: type 2 Diabetes mellitus alf insulin use: without alf use Diabetes mellitus complication status: without complication Qualified Code(s): E11.9 - Type 2 diabetes mellitus without complications - Time Spent With Patient Total time spent is greater than 50% in coordination of care (as documented) at patient's floor/unit and/or counseling patient: Greater than 35 minutes (45)
[2018-07-29] MEDS ORDERED: Nitroglycerin 0.4 MG TAB.SUBL SL PRN (15:43)
[2018-07-29] MEDS: Insulin LISPRO 300 UNITS/3 ML VIAL SQ SCH (16:52)
[2018-07-29] MEDS: Metoprolol XL (24 HR) Succ 25 MG TAB.ER.24H PO SCH (16:55)
[2018-07-29] MEDS: Apixaban 5 MG TABLET PO SCH (20:19)
[2018-07-29] MEDS ORDERED: Insulin DETEMIR 100 UNIT/ML X5UNITS SQ SCH (21:00)
[2018-07-30] MEDS ORDERED: carBAMazepine 200 MG TABLET PO SCH
[2018-07-30] MEDS ORDERED: traZODone 50 MG TABLET PO SCH (00:01)
[2018-07-30 00:53] LABS: Basophils % 0.3 %; Eosinophils # 0.1 K/mcL (0.0-0.6); Eosinophils % 1.9 %; Hematocrit 30.9 % (35.3-44.9); Hemoglobin 10.7 g/dL (11.5-15.4); Immature Granulocytes % 0.2 % (0-4); Lymphocytes # 2.3 K/mcL (0.6-4.6); Lymphocytes % 39.4 %; Mean Corpuscular HGB Conc 34.6 g/dL (31.6-35.5); Mean Corpuscular Hemoglobin 32.9 pg (28.0-33.3); Mean Corpuscular Volume 95.1 fL (83.0-100.0); Mean Platelet Volume 9.5 fL (9.4-12.4); Monocytes # 0.5 K/mcL (0.0-1.3); Monocytes % 8.9 %; Neutrophils # 2.9 K/mcL (1.6-8.9); Platelet Count 165 K/mcL (140-400); Red Blood Count 3.25 M/mcL (3.82-4.97); Red Cell Distribution Width 11.4 % (11.5-14.5); Segmented Neutrophils % 49.3 %
[2018-07-30 01:11] LABS: BUN/Creatinine Ratio 29 (6-26); Blood Urea Nitrogen 29 mg/dL (8-23); Calcium 8.6 mg/dL (8.6-10.3); Carbon Dioxide 26 mEq/L (23-29); Chloride 103 mEq/L (98-107); Glucose 101 mg/dL (70-105); Magnesium 1.6 mg/dL (1.6-2.6); Osmolality,Calculated 290 (280-300); Phosphorous 3.8 mg/dL (2.7-4.5); Potassium 4.3 mEq/L (3.5-5.1); Sodium 137 mEq/L (136-145); eGFR For Non-African Americans 54 (> 60)
[2018-07-30] MEDS ORDERED: Regadenoson 0.4 MG/5 ML SYRINGE IVP ONE (05:34)
[2018-07-30] MEDS ORDERED: Aspirin Enteric Coated 81 MG Tablet PO SCH (09:00)
[2018-07-30] MEDS ORDERED: Isosorbide MONOnitrate (24 HR) 60 MG TAB.ER.24H PO SCH (09:00)
[2018-07-30] MEDS ORDERED: Venlafaxine XR (24 HR) 75 MG CAP.ER.24H PO SCH (09:00)
[2018-07-30] MEDS: Metoprolol XL (24 HR) Succ 25 MG TAB.ER.24H PO SCH (09:26)
[2018-07-30] MEDS: Apixaban 5 MG TABLET PO SCH (09:26)
[2018-07-30] MEDS: Insulin LISPRO 300 UNITS/3 ML VIAL SQ SCH ×2 (09:40→12:23)
[2018-07-30 11:05] VITALS: BP 109/60
--- NOTE | 2018-07-30 14:41 | Discharge Summary ---
Orders not resulted at time of discharge: Pending orders 07/29/18 12:34 ECG 12 lead ECG [ECG] Stat 07/29/18 15:34 NM lai perf SPECT multi [NM] Routine Date of Encounter: 07/30/18 Time of Encounter: 14:39 - Discharge Diagnosis (1) Chest pain Priority: Primary Status: Acute Qualifiers: Chest pain type: unspecified Qualified Code(s): R07.9 - Chest pain, unspecified (2) CAD (coronary artery disease) Priority: Primary Status: Chronic Qualifiers: Coronary Disease-Associated Artery/Lesion type: [place] artery [place] vs. 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 use: without retirement use Diabetes mellitus complication status: without complication Qualified Code(s): E11.9 - Type 2 diabetes mellitus without complications (4) Hypertension Priority: Secondary Status: Chronic Qualifiers: Hypertension type: essential hypertension Qualified Code(s): I10 - Essential (primary) hypertension (5) Hyperlipidemia Priority: Secondary Status: Chronic Qualifiers: Hyperlipidemia type: unspecified Qualified Code(s): E78.5 - Hyperlipidemia, unspecified (6) Chronic deep vein thrombosis (DVT) Priority: Secondary Status: Chronic Qualifiers: DVT location: lower extremity Affected thrombotic vein of extremity: other lower extremity vein Laterality: left Qualified Code(s): I82.592 - Chronic embolism and thrombosis of other specified deep vein of left lower extremity (7) Depression with anxiety Priority: Secondary Status: Chronic Hospital course: HOSPITAL COURSE: The patient is a 72-year-old female. She was admitted to the hospitalist service with anterior chest pain. It was located to below her left breast with radiation to lower substernal area. It was not associated with any other symptoms. From past medical history we learned about her coronary artery disease. She had cardiac catheterization on a couple occasions in the past; without any interventions. EKG and cardiac enzymes done on 4 occasions were normal. We did a nuclear medicine stress testing. It did not show any significant abnormalities. The patient was pain free in the last 24 hours preceding this discharge. CONDITION AT DISCHARGE: The patient feels good. He denies chest pain and difficulty breathing. Denies coughing and wheezing. Denies abdominal pain, nausea and vomiting. She has normal urination. Skin: Free of rash and discoloration. Respiratory: Normal breath sounds with no crackles and wheezes bilaterally. CV: Heart is regular with no gallop or murmur. GI: Abdomen is flat and soft with no palpable mass or visceromegaly. Neuro exam: There is no focal deficits. Normal speech, swallowing and gait. SEE DISCHARGE ORDERS/MEDICATIONS.. Discharge discussed with: patient, nurse - Time Spent with Patient Total time spent providing and/or coordinating discharge services: Greater than 30 minutes (35 minutes..) - Discharge Medications Home Medications: Aspirin 81 mg PO DAILY 06/30/16 [History] Omeprazole [PriLOSEC] 20 mg PO DAILY 06/30/16 [History] Rosuvastatin [Crestor] 40 mg PO HS 06/30/16 [History] Venlafaxine XR (24 HR) [Effexor Xr] 150 mg PO DAILY 06/30/16 [History] carBAMazepine [Tegretol] 400 mg PO QPM 06/30/16 [History] metFORMIN [Glucophage] 1,000 mg PO BIDWM 06/30/16 [History] Buspirone HCl [Buspar] 5 mg PO TID PRN 11/22/16 [History] Irbesartan [Avapro] 150 mg PO DAILY 05/07/17 [History] Oxybutynin Chloride [Ditropan Xl] 10 mg PO DAILY 05/07/17 [History] amLODIPine [Norvasc] 5 mg PO DAILY 05/07/17 [History] Metoprolol XL (24 HR) Succ [Toprol Xl] 25 mg PO DAILY 11/13/17 [History] Apixaban [Eliquis] 5 mg PO BID #60 tablet 02/22/18 [Rx] Cyanocobalamin (Vitamin B-12) [Vitamin B12] 2,500 mcg PO DAILY #30 tab.chew 05/27/18 [Rx] Isosorbide MONOnitrate (24 HR) [Imdur] 60 mg PO DAILY 07/29/18 [History] Nitroglycerin 1 - 2 spray PO Q5MIN 07/29/18 [History] Saxagliptin HCl [Onglyza] 5 mg PO DAILY 07/29/18 [History] Trazodone HCl 200 mg PO HS 07/29/18 [History] Allergies/Adverse Reactions: Allergy/AdvReac Type Severity Reaction Status Date / Time nabumetone [From Relafen] Allergy Rash Verified 07/29/18 14:36 Penicillins [PCN] Allergy See Verified 07/29/18 14:36 Comments Sulfa (Sulfonamide Allergy Rash Verified 07/29/18 14:36 Antibiotics) Tetanus Vaccines and Toxoid Allergy See Verified 07/29/18 14:36 [Tetanus Vaccines & Toxoid] Comments Date of admission: 07/29/18 14:12 Primary care physician: Tisha Wagner CNP Discharging clinician: Guero Hanson Anticipated date of discharge: 07/30/18 - Constitutional Vitals: Temp Pulse Resp BP Pulse Ox 98.0 F 81 16 109/60 96 07/30/18 11:00 07/30/18 11:00 07/30/18 11:00 07/30/18 11:00 07/30/18 11:00 General appearance: Present: A&O X 3, no acute distress, answers questions appropriately Exam: xx - Patient Status Disposition: Home, Self-Care Condition: Good - Discharge Instructions Instructions: Chest Pain (DC) Follow Up With: Tisha Wagner CNP [Primary Care Provider] - 08/07/18 11:00 am () Luis Carlos Marina DO [Partnered Physician] - 08/13/18 3:40 pm Danyelle Britt MD [Partnered Physician] - 09/25/18 2:40 pm Seamus Bailey DO [Partnered Physician] - 08/30/18 2:15 pm - Diet and Activity Activity: resume usual activities as tolerated Diet: diabetic diet - VTE Reasons for not Prescribing Prophylaxis: Not indicated-Anticoagulated or INR therapeutic Deep Vein Thrombosis/Pulmonary Embolism Present on Admission: No
== END 2018-07-30 17:41 | disposition home or self-care (01) ==
LOC: 3BNU 12:24 → EMEROOARM 12:24 → 3BNU 15:27
PROVIDERS: ADMIT Internal Medicine; ATTEND Internal Medicine

== ENCOUNTER 2021-07-19 17:43 | Observation (INO) ==
[2021-07-19 19:12] LABS: Basophils % 0.5 %; Eosinophils # 0.1 K/mcL (0.0-0.6); Eosinophils % 0.9 %; Hematocrit 35.4 % (35.3-44.9); Hemoglobin 11.5 g/dL (11.5-15.4); Immature Granulocytes % 0.8 % (0-4); Lymphocytes % 31.8 %; Mean Corpuscular HGB Conc 32.5 g/dL (31.6-35.5); Mean Corpuscular Hemoglobin 31.9 pg (28.0-33.3); Mean Corpuscular Volume 98.3 fL (83.0-100.0); Mean Platelet Volume 9.7 fL (9.4-12.4); Monocytes # 0.6 K/mcL (0.0-1.3); Neutrophils # 3.6 K/mcL (1.6-8.9); Platelet Count 200 K/mcL (140-400); White Blood Count 6.4 K/mcL (4.3-11.1)
[2021-07-19 19:20] LABS: Prothrombin Time 11.2 Seconds (9.4-12.1)
[2021-07-19 19:30] LABS: Alanine Aminotransferase 7 Units/L (7-52); Albumin 3.7 g/dL (3.5-5.7); Albumin/Globulin Ratio 1.4 (1.1-2.2); Alkaline Phosphatase 65 Units/L (34-104); Aspartate Amino Transferase 10 Units/L (13-39); BUN/Creatinine Ratio 18 (6-26); Bilirubin,Total 0.2 mg/dL (0.3-1.0); Blood Urea Nitrogen 14 mg/dL (8-23); Calcium 8.5 mg/dL (8.6-10.3); Carbon Dioxide 29 mEq/L (23-29); Chloride 101 mEq/L (98-107); Globulin 2.7 g/dL (2.4-3.5); Glucose 165 mg/dL (70-105); Osmolality,Calculated 284 (280-300); Potassium 4.2 mEq/L (3.5-5.1); Sodium 135 mEq/L (136-145); Total Protein 6.4 g/dL (6.4-8.9); Troponin I < 0.03 ng/mL (< 0.04); eGFR For African Americans > 60 (> 60); eGFR For Non-African Americans > 60 (> 60)
[2021-07-19 19:37] LABS: Bacteria,Urine Few per hpf (None-Few); Mucus,Urine Few per lpf (None-Few); RBC,Urine 0-3 per hpf (0-3); Squamous Epithelial Cell,Urine Few per hpf (None-Few)
[2021-07-19 20:12] LABS: Clarity,Urine Clear (Clear); Color,Urine Light-Yellow (Yellow)
[2021-07-19 20:13] LABS: Bilirubin,Urine Negative (Negative); Blood,Urine Negative (Negative); Glucose,Urine (UA) Normal (Normal); Ketones,Urine Trace mg/dL (Negative); PH,Urine 6.5 pH Units (5.0-8.0); Protein,Urine Negative (Neg-Trace); Specific Gravity,Urine < 1.005 (1.010-1.025); Urobilinogen,Urine Normal (Normal)
[2021-07-19 20:14] LABS: Leukocyte Esterase,Urine Trace (Negative); Nitrite,Urine Negative (Negative)
[2021-07-19] MEDS: Acetaminophen 325 MG TABLET PO PRN (23:39)
[2021-07-20] MEDS ORDERED: Ondansetron 4 MG/2 ML VIAL IVP PRN (00:07)
[2021-07-20] MEDS ORDERED: *HR* Promethazine 25 MG/ML VIAL IM PRN (00:07)
[2021-07-20] MEDS ORDERED: Melatonin 3 MG TABLET PO PRN (00:07)
[2021-07-20] MEDS ORDERED: Naloxone 0.4 MG/ML INJ IVP PRN (00:07)
[2021-07-20] MEDS ORDERED: Perflutren Lipid Microsphere 1.3 ML in 0.9 % Sodium Chloride 8.7 ML IVP PRN (00:14)
[2021-07-20 01:29] LABS: BUN/Creatinine Ratio 14 (6-26); Blood Urea Nitrogen 12 mg/dL (8-23); Calcium 8.5 mg/dL (8.6-10.3); Carbon Dioxide 26 mEq/L (23-29); Chloride 101 mEq/L (98-107); Cholesterol 343 mg/dL (< 200); Glucose 166 mg/dL (70-105); HDL Cholesterol 57 mg/dL (40-59); Magnesium 1.5 mg/dL (1.6-2.6); Osmolality,Calculated 286 (280-300); Potassium 4.1 mEq/L (3.5-5.1); Sodium 136 mEq/L (136-145); Triglycerides 496 mg/dL (< 150); eGFR For African Americans > 60 (> 60); eGFR For Non-African Americans > 60 (> 60)
[2021-07-20 01:43] LABS: Basophils % 0.4 %; Eosinophils # 0.1 K/mcL (0.0-0.6); Hematocrit 35.7 % (35.3-44.9); Hemoglobin 11.7 g/dL (11.5-15.4); Immature Granulocytes % 0.7 % (0-4); Lymphocytes # 2.6 K/mcL (0.6-4.6); Lymphocytes % 37.4 %; Mean Corpuscular HGB Conc 32.8 g/dL (31.6-35.5); Mean Corpuscular Hemoglobin 32.1 pg (28.0-33.3); Mean Corpuscular Volume 97.8 fL (83.0-100.0); Mean Platelet Volume 10.1 fL (9.4-12.4); Monocytes # 0.6 K/mcL (0.0-1.3); Monocytes % 8.1 %; Neutrophils # 3.6 K/mcL (1.6-8.9); Platelet Count 201 K/mcL (140-400); Red Blood Count 3.65 M/mcL (3.82-4.97); Red Cell Distribution Width 11.9 % (11.5-14.5); Segmented Neutrophils % 52.4 %; White Blood Count 6.9 K/mcL (4.3-11.1)
[2021-07-20] MEDS ORDERED: *HR* Dextrose 50 % in Water (Syg) 50 ML SYRINGE IVP PRN (06:06)
[2021-07-20] MEDS ORDERED: D5% in Water 1,000 ML IVC PRN (06:06)
[2021-07-20] MEDS ORDERED: Dextrose Gel 15 GM/37.5 ML TUBE PO PRN ×2 (06:06)
[2021-07-20] MEDS ORDERED: Apixaban 5 MG TABLET PO SCH (09:00)
[2021-07-20] MEDS: Insulin LISPRO 300 UNITS/3 ML VIAL SUBQ SCH ×4 (09:04→20:25)
[2021-07-20] MEDS: carBAMazepine 200 MG TABLET PO SCH (20:24)
[2021-07-20] MEDS: Gabapentin 300 MG CAPSULE PO SCH (20:25)
[2021-07-20] MEDS: traZODone 50 MG TABLET PO SCH (20:25)
[2021-07-21] MEDS: *HR* Enoxaparin 40 MG/0.4 ML SYRINGE SQ SCH (05:49)
[2021-07-21 09:03] LABS: Estimated Average Glucose 183 mg/dl
[2021-07-21] MEDS: carBAMazepine 200 MG TABLET PO SCH ×2 (09:12→20:25)
[2021-07-21] MEDS: Venlafaxine XR (24 HR) 150 MG CAP.ER.24H PO SCH (09:12)
[2021-07-21] MEDS: Metoprolol XL (24 HR) Succ 25 MG TAB.ER.24H PO SCH (09:12)
[2021-07-21] MEDS: amLODIPine 5 MG TABLET PO SCH (09:12)
[2021-07-21] MEDS: Gabapentin 300 MG CAPSULE PO SCH ×2 (09:12→20:25)
[2021-07-21] MEDS: Aspirin 81 MG TAB.CHEW PO SCH (09:12)
[2021-07-21] MEDS: Insulin LISPRO 300 UNITS/3 ML VIAL SUBQ SCH ×4 (09:18→20:26)
[2021-07-21] MEDS: Acetaminophen 325 MG TABLET PO PRN ×2 (12:34→20:52)
[2021-07-21] MEDS ORDERED: Isovue-370 500 ML BOTTLE IVP ONE (12:56)
[2021-07-21] MEDS: traZODone 50 MG TABLET PO SCH (20:25)
[2021-07-21] MEDS: Apixaban 5 MG TABLET PO SCH (20:26)
[2021-07-22] MEDS: *HR* Enoxaparin 40 MG/0.4 ML SYRINGE SQ SCH (05:19)
[2021-07-22] MEDS: Insulin LISPRO 300 UNITS/3 ML VIAL SUBQ SCH ×4 (09:01→21:39)
[2021-07-22] MEDS: Venlafaxine XR (24 HR) 150 MG CAP.ER.24H PO SCH (09:02)
[2021-07-22] MEDS: Metoprolol XL (24 HR) Succ 25 MG TAB.ER.24H PO SCH (09:02)
[2021-07-22] MEDS: amLODIPine 5 MG TABLET PO SCH (09:02)
[2021-07-22] MEDS: Aspirin 81 MG TAB.CHEW PO SCH (09:02)
[2021-07-22] MEDS: Apixaban 5 MG TABLET PO SCH ×2 (09:02→21:38)
[2021-07-22] MEDS: carBAMazepine 200 MG TABLET PO SCH ×2 (09:03→21:38)
[2021-07-22] MEDS: Gabapentin 300 MG CAPSULE PO SCH ×2 (09:03→21:38)
[2021-07-22] MEDS: traZODone 50 MG TABLET PO SCH (21:38)
[2021-07-23] MEDS: *HR* Enoxaparin 40 MG/0.4 ML SYRINGE SQ SCH (05:18)
[2021-07-23] MEDS: Metoprolol XL (24 HR) Succ 25 MG TAB.ER.24H PO SCH (08:54)
[2021-07-23] MEDS: Gabapentin 300 MG CAPSULE PO SCH ×2 (08:54→20:56)
[2021-07-23] MEDS: Venlafaxine XR (24 HR) 150 MG CAP.ER.24H PO SCH (08:54)
[2021-07-23] MEDS: amLODIPine 5 MG TABLET PO SCH (08:54)
[2021-07-23] MEDS: Apixaban 5 MG TABLET PO SCH ×2 (08:54→20:56)
[2021-07-23] MEDS: carBAMazepine 200 MG TABLET PO SCH ×2 (08:54→20:56)
[2021-07-23] MEDS: Aspirin 81 MG TAB.CHEW PO SCH (08:55)
[2021-07-23] MEDS: Insulin LISPRO 300 UNITS/3 ML VIAL SUBQ SCH ×4 (08:55→20:58)
[2021-07-23] MEDS: traZODone 50 MG TABLET PO SCH (20:57)
[2021-07-23] MEDS: Acetaminophen 325 MG TABLET PO PRN (22:00)
[2021-07-24] MEDS: *HR* Enoxaparin 40 MG/0.4 ML SYRINGE SQ SCH (05:24)
[2021-07-24] MEDS: Insulin LISPRO 300 UNITS/3 ML VIAL SUBQ SCH ×4 (08:32→21:52)
[2021-07-24] MEDS: Gabapentin 300 MG CAPSULE PO SCH ×2 (08:33→21:49)
[2021-07-24] MEDS: Metoprolol XL (24 HR) Succ 25 MG TAB.ER.24H PO SCH (08:33)
[2021-07-24] MEDS: Aspirin 81 MG TAB.CHEW PO SCH (08:33)
[2021-07-24] MEDS: amLODIPine 5 MG TABLET PO SCH (08:33)
[2021-07-24] MEDS: carBAMazepine 200 MG TABLET PO SCH ×2 (08:33→21:49)
[2021-07-24] MEDS: Venlafaxine XR (24 HR) 150 MG CAP.ER.24H PO SCH (08:33)
[2021-07-24] MEDS: Apixaban 5 MG TABLET PO SCH ×2 (08:34→21:49)
[2021-07-24] MEDS: traZODone 50 MG TABLET PO SCH (21:50)
[2021-07-25 03:37] LABS: Hematocrit 34.2 % (35.3-44.9); Hemoglobin 11.3 g/dL (11.5-15.4); Mean Corpuscular Hemoglobin 31.9 pg (28.0-33.3); Mean Corpuscular Volume 96.6 fL (83.0-100.0); Platelet Count 197 K/mcL (140-400); Red Blood Count 3.54 M/mcL (3.82-4.97); Red Cell Distribution Width 11.7 % (11.5-14.5); White Blood Count 7.1 K/mcL (4.3-11.1)
[2021-07-25 04:01] LABS: BUN/Creatinine Ratio 19 (6-26); Blood Urea Nitrogen 20 mg/dL (8-23); Calcium 7.9 mg/dL (8.6-10.3); Carbon Dioxide 25 mEq/L (23-29); Chloride 104 mEq/L (98-107); Glucose 231 mg/dL (70-105); Osmolality,Calculated 294 (280-300); Sodium 137 mEq/L (136-145); eGFR For African Americans > 60 (> 60); eGFR For Non-African Americans 51 (> 60)
[2021-07-25] MEDS: *HR* Enoxaparin 40 MG/0.4 ML SYRINGE SQ SCH (06:25)
[2021-07-25] MEDS: Insulin LISPRO 300 UNITS/3 ML VIAL SUBQ SCH ×4 (09:51→22:10)
[2021-07-25] MEDS: Metoprolol XL (24 HR) Succ 25 MG TAB.ER.24H PO SCH (09:52)
[2021-07-25] MEDS: carBAMazepine 200 MG TABLET PO SCH ×2 (09:52→22:08)
[2021-07-25] MEDS: Aspirin 81 MG TAB.CHEW PO SCH (09:52)
[2021-07-25] MEDS: Gabapentin 300 MG CAPSULE PO SCH ×2 (09:52→22:09)
[2021-07-25] MEDS: amLODIPine 5 MG TABLET PO SCH (09:52)
[2021-07-25] MEDS: Venlafaxine XR (24 HR) 150 MG CAP.ER.24H PO SCH (09:53)
[2021-07-25] MEDS: Apixaban 5 MG TABLET PO SCH ×2 (09:53→22:09)
[2021-07-25] MEDS: traZODone 50 MG TABLET PO SCH (22:09)
[2021-07-26 05:55] LABS: Hematocrit 34.9 % (35.3-44.9); Hemoglobin 11.6 g/dL (11.5-15.4); Mean Corpuscular HGB Conc 33.2 g/dL (31.6-35.5); Mean Corpuscular Hemoglobin 32.2 pg (28.0-33.3); Mean Corpuscular Volume 96.9 fL (83.0-100.0); Mean Platelet Volume 9.9 fL (9.4-12.4); Platelet Count 199 K/mcL (140-400); White Blood Count 8.4 K/mcL (4.3-11.1)
[2021-07-26 06:18] LABS: BUN/Creatinine Ratio 24 (6-26); Blood Urea Nitrogen 24 mg/dL (8-23); Calcium 8.1 mg/dL (8.6-10.3); Carbon Dioxide 25 mEq/L (23-29); Chloride 104 mEq/L (98-107); Glucose 234 mg/dL (70-105); Osmolality,Calculated 294 (280-300); Potassium 4.2 mEq/L (3.5-5.1); Sodium 136 mEq/L (136-145); eGFR For African Americans > 60 (> 60); eGFR For Non-African Americans 54 (> 60)
[2021-07-26] MEDS: Gabapentin 300 MG CAPSULE PO SCH ×2 (07:54→21:03)
[2021-07-26] MEDS: Metoprolol XL (24 HR) Succ 25 MG TAB.ER.24H PO SCH (07:54)
[2021-07-26] MEDS: amLODIPine 5 MG TABLET PO SCH (07:54)
[2021-07-26] MEDS: carBAMazepine 200 MG TABLET PO SCH ×2 (07:54→21:03)
[2021-07-26] MEDS: Venlafaxine XR (24 HR) 150 MG CAP.ER.24H PO SCH (07:54)
[2021-07-26] MEDS: Aspirin 81 MG TAB.CHEW PO SCH (07:54)
[2021-07-26] MEDS: Apixaban 5 MG TABLET PO SCH ×2 (07:54→21:03)
[2021-07-26] MEDS: Insulin LISPRO 300 UNITS/3 ML VIAL SUBQ SCH ×4 (07:58→21:03)
[2021-07-26] MEDS ORDERED: Isovue-370 500 ML BOTTLE IVP ONE (17:15)
[2021-07-26] MEDS: traZODone 50 MG TABLET PO SCH (21:02)
[2021-07-27 02:34] LABS: Hematocrit 35.9 % (35.3-44.9); Hemoglobin 11.5 g/dL (11.5-15.4); Mean Corpuscular Hemoglobin 31.3 pg (28.0-33.3); Mean Corpuscular Volume 97.8 fL (83.0-100.0); Platelet Count 203 K/mcL (140-400); Red Blood Count 3.67 M/mcL (3.82-4.97); Red Cell Distribution Width 11.9 % (11.5-14.5); White Blood Count 8.1 K/mcL (4.3-11.1)
[2021-07-27 02:42] LABS: BUN/Creatinine Ratio 27 (6-26); Blood Urea Nitrogen 22 mg/dL (8-23); Carbon Dioxide 25 mEq/L (23-29); Chloride 106 mEq/L (98-107); Glucose 240 mg/dL (70-105); Osmolality,Calculated 295 (280-300); Potassium 4.2 mEq/L (3.5-5.1); Sodium 137 mEq/L (136-145); eGFR For African Americans > 60 (> 60); eGFR For Non-African Americans > 60 (> 60)
[2021-07-27] MEDS: Insulin LISPRO 300 UNITS/3 ML VIAL SUBQ SCH ×4 (09:31→19:59)
[2021-07-27] MEDS: Metoprolol XL (24 HR) Succ 25 MG TAB.ER.24H PO SCH (09:48)
[2021-07-27] MEDS: Gabapentin 300 MG CAPSULE PO SCH ×2 (09:48→19:38)
[2021-07-27] MEDS: carBAMazepine 200 MG TABLET PO SCH ×2 (09:48→19:38)
[2021-07-27] MEDS: Aspirin 81 MG TAB.CHEW PO SCH (09:48)
[2021-07-27] MEDS: Venlafaxine XR (24 HR) 150 MG CAP.ER.24H PO SCH (09:48)
[2021-07-27] MEDS: amLODIPine 5 MG TABLET PO SCH (09:48)
[2021-07-27] MEDS: Apixaban 5 MG TABLET PO SCH ×2 (09:49→19:39)
[2021-07-27] MEDS: traZODone 50 MG TABLET PO SCH (19:38)
[2021-07-28] MEDS: Insulin LISPRO 300 UNITS/3 ML VIAL SUBQ SCH ×3 (07:52→16:41)
[2021-07-28] MEDS: Aspirin 81 MG TAB.CHEW PO SCH (07:57)
[2021-07-28] MEDS: Gabapentin 300 MG CAPSULE PO SCH (07:57)
[2021-07-28] MEDS: Metoprolol XL (24 HR) Succ 25 MG TAB.ER.24H PO SCH (07:57)
[2021-07-28] MEDS: carBAMazepine 200 MG TABLET PO SCH (07:58)
[2021-07-28] MEDS: Apixaban 5 MG TABLET PO SCH (07:58)
[2021-07-28] MEDS: Venlafaxine XR (24 HR) 150 MG CAP.ER.24H PO SCH (07:58)
[2021-07-28] MEDS: amLODIPine 5 MG TABLET PO SCH (07:58)
[2021-07-28 08:56] LABS: Influenza A PCR Negative (Negative); Influenza B PCR Negative (Negative); Resp. Syncytial Virus PCR Negative (Negative)
[2021-07-28 08:57] LABS: SARS-CoV-2 by PCR (In House) Negative (Negative)
[2021-07-28 14:51] VITALS: BP 160/86; PULSE 84; TEMP 98.5; O2SAT 94
== END 2021-07-28 20:10 ==
LOC: EMEROOARM 17:43 → 3BNU 17:43 → SUATTDRO 22:26 → 3BNU 22:56
PROVIDERS: ADMIT Internal Medicine; ATTEND Registered Nurse

== ENCOUNTER 2021-10-20 12:09 | Inpatient (IN) ==
[2021-10-20 18:56] LABS: Basophils % 0.5 %; Eosinophils # 0.1 K/mcL (0.0-0.6); Eosinophils % 1.5 %; Hemoglobin 11.8 g/dL (11.5-15.4); Immature Granulocytes % 0.9 % (0-4); Lymphocytes # 2.4 K/mcL (0.6-4.6); Lymphocytes % 29.6 %; Mean Corpuscular HGB Conc 32.8 g/dL (31.6-35.5); Mean Corpuscular Hemoglobin 32.1 pg (28.0-33.3); Mean Corpuscular Volume 97.8 fL (83.0-100.0); Mean Platelet Volume 9.8 fL (9.4-12.4); Monocytes # 0.6 K/mcL (0.0-1.3); Monocytes % 7.5 %; Neutrophils # 4.9 K/mcL (1.6-8.9); Platelet Count 212 K/mcL (140-400); Red Blood Count 3.68 M/mcL (3.82-4.97); Red Cell Distribution Width 12.1 % (11.5-14.5); White Blood Count 8.1 K/mcL (4.3-11.1)
[2021-10-20 19:15] LABS: Alanine Aminotransferase 7 Units/L (7-52); Albumin/Globulin Ratio 1.4 (1.1-2.2); Alkaline Phosphatase 68 Units/L (34-104); Aspartate Amino Transferase 9 Units/L (13-39); BUN/Creatinine Ratio 16 (6-26); Bilirubin,Total 0.2 mg/dL (0.3-1.0); Blood Urea Nitrogen 15 mg/dL (8-23); Calcium 8.7 mg/dL (8.6-10.3); Carbon Dioxide 25 mEq/L (23-29); Chloride 98 mEq/L (98-107); Globulin 2.8 g/dL (2.4-3.5); Glucose 176 mg/dL (70-105); Osmolality,Calculated 283 (280-300); Sodium 134 mEq/L (136-145); Total Protein 6.8 g/dL (6.4-8.9); Troponin I < 0.03 ng/mL (< 0.04); eGFR For African Americans > 60 (> 60); eGFR For Non-African Americans 60 (> 60)
[2021-10-20 19:24] LABS: Thyroid Stimulating Hormone 1.433 mcIU/mL (0.340-5.600)
[2021-10-20] MEDS ORDERED: Isovue-370 500 ML BOTTLE IVP ONE (21:13)
[2021-10-21] MEDS ORDERED: Ondansetron 4 MG/2 ML VIAL IVP PRN (05:32)
[2021-10-21] MEDS ORDERED: Perflutren Lipid Microsphere 1.3 ML in 0.9 % Sodium Chloride 8.7 ML IVP PRN (05:32)
[2021-10-21] MEDS ORDERED: Naloxone 0.4 MG/ML INJ IVP PRN (05:32)
[2021-10-21] MEDS ORDERED: *HR* Dextrose 50 % in Water (Syg) 50 ML SYRINGE IVP PRN (06:05)
[2021-10-21] MEDS ORDERED: D5% in Water 1,000 ML IVC PRN (06:05)
[2021-10-21] MEDS ORDERED: Dextrose Gel 15 GM/37.5 ML TUBE PO PRN ×2 (06:05)
[2021-10-21] MEDS: Aspirin 81 MG TAB.CHEW PO SCH (09:06)
[2021-10-21] MEDS: Insulin LISPRO 300 UNITS/3 ML VIAL SUBQ SCH ×4 (09:07→20:50)
[2021-10-21] MEDS: carBAMazepine 200 MG TABLET PO SCH ×2 (09:07→20:51)
[2021-10-21] MEDS: Acetaminophen 325 MG TABLET PO PRN (09:26)
[2021-10-21 12:44] LABS: Folate 11.5 ng/mL (3.0-16.0)
[2021-10-21] MEDS: traZODone 50 MG TABLET PO SCH (20:51)
[2021-10-22 05:53] LABS: Hematocrit 34.7 % (35.3-44.9); Hemoglobin 11.7 g/dL (11.5-15.4); Mean Corpuscular HGB Conc 33.7 g/dL (31.6-35.5); Mean Corpuscular Hemoglobin 32.5 pg (28.0-33.3); Mean Corpuscular Volume 96.4 fL (83.0-100.0); Mean Platelet Volume 10.3 fL (9.4-12.4); Platelet Count 211 K/mcL (140-400); Red Cell Distribution Width 12.2 % (11.5-14.5); White Blood Count 5.8 K/mcL (4.3-11.1)
[2021-10-22 06:11] LABS: BUN/Creatinine Ratio 15 (6-26); Blood Urea Nitrogen 11 mg/dL (8-23); Calcium 8.9 mg/dL (8.6-10.3); Carbon Dioxide 26 mEq/L (23-29); Chloride 101 mEq/L (98-107); Chol/HDL Ratio 5.6 (0-4.9); Cholesterol 332 mg/dL (< 200); Glucose 202 mg/dL (70-105); HDL Cholesterol 59 mg/dL (40-59); LDL Cholesterol,Calculated 219 mg/dL (< 100); Magnesium 1.4 mg/dL (1.6-2.6); Osmolality,Calculated 287 (280-300); Potassium 3.9 mEq/L (3.5-5.1); Sodium 136 mEq/L (136-145); Triglycerides 268 mg/dL (< 150); eGFR For African Americans > 60 (> 60); eGFR For Non-African Americans > 60 (> 60)
[2021-10-22] MEDS ORDERED: Cyanocobalamin (B-12) 1,000 MCG/ML VIAL IM ONE (07:59)
[2021-10-22] MEDS: Insulin LISPRO 300 UNITS/3 ML VIAL SUBQ SCH ×4 (08:42→20:39)
[2021-10-22] MEDS: Apixaban 5 MG TABLET PO SCH ×2 (08:43→20:35)
[2021-10-22] MEDS: Gabapentin 300 MG CAPSULE PO SCH ×2 (08:43→20:35)
[2021-10-22] MEDS: Venlafaxine XR (24 HR) 150 MG CAP.ER.24H PO SCH (08:43)
[2021-10-22] MEDS: Aspirin 81 MG TAB.CHEW PO SCH (08:43)
[2021-10-22] MEDS: carBAMazepine 200 MG TABLET PO SCH ×2 (08:44→20:35)
[2021-10-22 09:47] LABS: Estimated Average Glucose 192 mg/dl; Hemoglobin A1C 8.3 %
[2021-10-22] MEDS: Acetaminophen 325 MG TABLET PO PRN (18:38)
[2021-10-22] MEDS: traZODone 50 MG TABLET PO SCH (20:35)
[2021-10-22] MEDS ORDERED: Acetaminophen IV 500 MG/50 ML BAG IVPB ONE (20:45)
[2021-10-23 05:44] LABS: Hematocrit 33.2 % (35.3-44.9); Hemoglobin 11.1 g/dL (11.5-15.4); Mean Corpuscular HGB Conc 33.4 g/dL (31.6-35.5); Mean Corpuscular Hemoglobin 32.4 pg (28.0-33.3); Mean Corpuscular Volume 96.8 fL (83.0-100.0); Mean Platelet Volume 9.9 fL (9.4-12.4); Platelet Count 196 K/mcL (140-400); Red Blood Count 3.43 M/mcL (3.82-4.97); Red Cell Distribution Width 12.2 % (11.5-14.5); White Blood Count 5.3 K/mcL (4.3-11.1)
[2021-10-23 05:59] LABS: BUN/Creatinine Ratio 16 (6-26); Blood Urea Nitrogen 13 mg/dL (8-23); Calcium 8.5 mg/dL (8.6-10.3); Carbon Dioxide 28 mEq/L (23-29); Chloride 101 mEq/L (98-107); Glucose 267 mg/dL (70-105); Magnesium 1.7 mg/dL (1.6-2.6); Osmolality,Calculated 291 (280-300); Potassium 3.7 mEq/L (3.5-5.1); Sodium 136 mEq/L (136-145); eGFR For African Americans > 60 (> 60); eGFR For Non-African Americans > 60 (> 60)
[2021-10-23] MEDS: Insulin LISPRO 300 UNITS/3 ML VIAL SUBQ SCH ×4 (07:55→21:15)
[2021-10-23] MEDS: Aspirin 81 MG TAB.CHEW PO SCH (07:56)
[2021-10-23] MEDS: carBAMazepine 200 MG TABLET PO SCH ×2 (07:56→21:15)
[2021-10-23] MEDS: Apixaban 5 MG TABLET PO SCH ×2 (07:56→21:13)
[2021-10-23] MEDS: Acetaminophen 325 MG TABLET PO PRN (07:56)
[2021-10-23] MEDS: Venlafaxine XR (24 HR) 150 MG CAP.ER.24H PO SCH (07:56)
[2021-10-23] MEDS: Gabapentin 300 MG CAPSULE PO SCH ×2 (07:56→21:14)
[2021-10-23] MEDS ORDERED: Insulin DETEMIR 100 UNIT/ML X5UNITS SUBQ SCH (21:00)
[2021-10-23] MEDS: traZODone 50 MG TABLET PO SCH (21:13)
[2021-10-24 01:20] LABS: Hematocrit 32.6 % (35.3-44.9); Hemoglobin 10.8 g/dL (11.5-15.4); Mean Corpuscular HGB Conc 33.1 g/dL (31.6-35.5); Mean Corpuscular Volume 96.7 fL (83.0-100.0); Mean Platelet Volume 10.2 fL (9.4-12.4); Platelet Count 213 K/mcL (140-400); Red Blood Count 3.37 M/mcL (3.82-4.97); Red Cell Distribution Width 11.9 % (11.5-14.5); White Blood Count 5.6 K/mcL (4.3-11.1)
[2021-10-24 01:40] LABS: BUN/Creatinine Ratio 19 (6-26); Blood Urea Nitrogen 15 mg/dL (8-23); Calcium 8.2 mg/dL (8.6-10.3); Carbon Dioxide 26 mEq/L (23-29); Chloride 97 mEq/L (98-107); Glucose 465 mg/dL (70-105); Magnesium 1.5 mg/dL (1.6-2.6); Osmolality,Calculated 297 (280-300); Potassium 3.7 mEq/L (3.5-5.1); Sodium 133 mEq/L (136-145); eGFR For African Americans > 60 (> 60); eGFR For Non-African Americans > 60 (> 60)
[2021-10-24] MEDS: Venlafaxine XR (24 HR) 150 MG CAP.ER.24H PO SCH (08:44)
[2021-10-24] MEDS: Gabapentin 300 MG CAPSULE PO SCH ×2 (08:45→19:44)
[2021-10-24] MEDS: Aspirin 81 MG TAB.CHEW PO SCH (08:45)
[2021-10-24] MEDS: amLODIPine 5 MG TABLET PO SCH (08:45)
[2021-10-24] MEDS: Insulin LISPRO 300 UNITS/3 ML VIAL SUBQ SCH ×4 (08:45→19:53)
[2021-10-24] MEDS: Apixaban 5 MG TABLET PO SCH ×2 (08:45→19:45)
[2021-10-24] MEDS: carBAMazepine 200 MG TABLET PO SCH ×2 (09:23→19:44)
[2021-10-24] MEDS ORDERED: Metoprolol XL (24 HR) Succ 25 MG TAB.ER.24H PO SCH (11:09)
[2021-10-24] MEDS ORDERED: Metoprolol XL (24 HR) Succ 50 MG TAB.ER.24H PO ONE (12:14)
[2021-10-24] MEDS: Acetaminophen 325 MG TABLET PO PRN (19:44)
[2021-10-24] MEDS: traZODone 50 MG TABLET PO SCH (19:45)
[2021-10-24] MEDS ORDERED: Insulin DETEMIR 100 UNIT/ML X5UNITS SUBQ SCH (21:00)
[2021-10-25 05:09] LABS: BUN/Creatinine Ratio 21 (6-26); Blood Urea Nitrogen 16 mg/dL (8-23); Calcium 8.9 mg/dL (8.6-10.3); Carbon Dioxide 28 mEq/L (23-29); Chloride 100 mEq/L (98-107); Glucose 294 mg/dL (70-105); Magnesium 1.8 mg/dL (1.6-2.6); Osmolality,Calculated 292 (280-300); Sodium 135 mEq/L (136-145); eGFR For African Americans > 60 (> 60); eGFR For Non-African Americans > 60 (> 60)
[2021-10-25] MEDS: Aspirin 81 MG TAB.CHEW PO SCH (07:54)
[2021-10-25] MEDS: Magnesium Oxide 400 MG TABLET PO SCH (07:54)
[2021-10-25] MEDS: Gabapentin 300 MG CAPSULE PO SCH ×2 (07:54→20:34)
[2021-10-25] MEDS: amLODIPine 5 MG TABLET PO SCH (07:54)
[2021-10-25] MEDS: Venlafaxine XR (24 HR) 150 MG CAP.ER.24H PO SCH (07:54)
[2021-10-25] MEDS: Apixaban 5 MG TABLET PO SCH ×2 (07:55→20:34)
[2021-10-25] MEDS: Metoprolol XL (24 HR) Succ 25 MG TAB.ER.24H PO SCH (07:55)
[2021-10-25] MEDS: Insulin LISPRO 300 UNITS/3 ML VIAL SUBQ SCH ×4 (07:55→20:35)
[2021-10-25] MEDS: carBAMazepine 200 MG TABLET PO SCH (20:34)
[2021-10-25] MEDS: traZODone 50 MG TABLET PO SCH (20:34)
[2021-10-25] MEDS: Insulin DETEMIR 100 UNIT/ML X5UNITS SUBQ SCH (20:50)
[2021-10-26] MEDS: Venlafaxine XR (24 HR) 150 MG CAP.ER.24H PO SCH (07:49)
[2021-10-26] MEDS: Metoprolol XL (24 HR) Succ 25 MG TAB.ER.24H PO SCH (07:49)
[2021-10-26] MEDS: Magnesium Oxide 400 MG TABLET PO SCH (07:49)
[2021-10-26] MEDS: Apixaban 5 MG TABLET PO SCH ×2 (07:50→20:48)
[2021-10-26] MEDS: amLODIPine 5 MG TABLET PO SCH (07:50)
[2021-10-26] MEDS: Aspirin 81 MG TAB.CHEW PO SCH (07:50)
[2021-10-26] MEDS: Gabapentin 300 MG CAPSULE PO SCH ×2 (07:50→20:48)
[2021-10-26] MEDS: Insulin LISPRO 300 UNITS/3 ML VIAL SUBQ SCH ×4 (07:51→20:47)
[2021-10-26] MEDS: traZODone 50 MG TABLET PO SCH (20:47)
[2021-10-26] MEDS: Insulin DETEMIR 100 UNIT/ML X5UNITS SUBQ SCH (20:48)
[2021-10-26] MEDS: carBAMazepine 200 MG TABLET PO SCH (20:48)
[2021-10-26] MEDS: Acetaminophen 325 MG TABLET PO PRN (23:12)
[2021-10-27] MEDS: Venlafaxine XR (24 HR) 150 MG CAP.ER.24H PO SCH (07:49)
[2021-10-27] MEDS: Metoprolol XL (24 HR) Succ 25 MG TAB.ER.24H PO SCH (07:49)
[2021-10-27] MEDS: Insulin LISPRO 300 UNITS/3 ML VIAL SUBQ SCH ×4 (07:49→20:39)
[2021-10-27] MEDS: Acetaminophen 325 MG TABLET PO PRN (07:50)
[2021-10-27] MEDS: Gabapentin 300 MG CAPSULE PO SCH ×2 (07:50→20:47)
[2021-10-27] MEDS: amLODIPine 5 MG TABLET PO SCH (07:50)
[2021-10-27] MEDS: Apixaban 5 MG TABLET PO SCH ×2 (07:50→20:47)
[2021-10-27] MEDS: Magnesium Oxide 400 MG TABLET PO SCH (07:50)
[2021-10-27] MEDS: Aspirin 81 MG TAB.CHEW PO SCH (07:50)
[2021-10-27 15:34] LABS: Influenza A PCR Negative (Negative); Influenza B PCR Negative (Negative); Resp. Syncytial Virus PCR Negative (Negative)
[2021-10-27 15:50] LABS: SARS-CoV-2 by PCR (In House) Negative (Negative)
[2021-10-27] MEDS: carBAMazepine 200 MG TABLET PO SCH (20:47)
[2021-10-27] MEDS: traZODone 50 MG TABLET PO SCH (20:48)
[2021-10-27] MEDS: Insulin DETEMIR 100 UNIT/ML X5UNITS SUBQ SCH (20:48)
[2021-10-28] MEDS: Gabapentin 300 MG CAPSULE PO SCH ×2 (07:47→22:03)
[2021-10-28] MEDS: Aspirin 81 MG TAB.CHEW PO SCH (07:47)
[2021-10-28] MEDS: Metoprolol XL (24 HR) Succ 25 MG TAB.ER.24H PO SCH (07:47)
[2021-10-28] MEDS: Magnesium Oxide 400 MG TABLET PO SCH (07:48)
[2021-10-28] MEDS: amLODIPine 5 MG TABLET PO SCH (07:48)
[2021-10-28] MEDS: Apixaban 5 MG TABLET PO SCH ×2 (07:48→22:01)
[2021-10-28] MEDS: Venlafaxine XR (24 HR) 150 MG CAP.ER.24H PO SCH (07:48)
[2021-10-28] MEDS: Insulin LISPRO 300 UNITS/3 ML VIAL SUBQ SCH ×4 (07:48→22:03)
[2021-10-28] MEDS: traZODone 50 MG TABLET PO SCH (22:02)
[2021-10-28] MEDS: Insulin DETEMIR 100 UNIT/ML X5UNITS SUBQ SCH (22:04)
[2021-10-29 07:11] VITALS: BP 135/73; PULSE 92; TEMP 98.1; O2SAT 97
[2021-10-29] MEDS: Insulin LISPRO 300 UNITS/3 ML VIAL SUBQ SCH (08:08)
[2021-10-29] MEDS: Metoprolol XL (24 HR) Succ 25 MG TAB.ER.24H PO SCH (08:09)
[2021-10-29] MEDS: amLODIPine 5 MG TABLET PO SCH (08:09)
[2021-10-29] MEDS: Gabapentin 300 MG CAPSULE PO SCH (08:09)
[2021-10-29] MEDS: Magnesium Oxide 400 MG TABLET PO SCH (08:09)
[2021-10-29] MEDS: Aspirin 81 MG TAB.CHEW PO SCH (08:09)
[2021-10-29] MEDS: Apixaban 5 MG TABLET PO SCH (08:10)
[2021-10-29] MEDS: Venlafaxine XR (24 HR) 150 MG CAP.ER.24H PO SCH (08:10)
== END 2021-10-29 10:22 | disposition other institution (70) | DRG 65 ==
LOC: EMEROOARM 12:09 → 2ANU 12:09 → SUATTDRO 10-21 00:32 → 2ANU 10-21 01:49 → SUATTDRO 10-22 17:32
PROVIDERS: ADMIT Internal Medicine; ATTEND Internal Medicine

== ENCOUNTER 2022-04-04 09:51 | Observation (INO) ==
[2022-04-04 11:00] LABS: Basophils % 0.2 %; Eosinophils % 0.1 %; Hemoglobin 12.1 g/dL (11.5-15.4); Immature Granulocytes % 0.5 % (0-4); Lymphocytes # 1.5 K/mcL (0.6-4.6); Lymphocytes % 17.9 %; Mean Corpuscular HGB Conc 32.7 g/dL (31.6-35.5); Mean Corpuscular Hemoglobin 32.2 pg (28.0-33.3); Mean Corpuscular Volume 98.4 fL (83.0-100.0); Mean Platelet Volume 10.2 fL (9.4-12.4); Monocytes # 0.8 K/mcL (0.0-1.3); Monocytes % 9.1 %; Platelet Count 201 K/mcL (140-400); Red Blood Count 3.76 M/mcL (3.82-4.97); Segmented Neutrophils % 72.2 %; White Blood Count 8.3 K/mcL (4.3-11.1)
[2022-04-04 11:24] LABS: Alanine Aminotransferase 13 Units/L (7-52); Albumin 3.9 g/dL (3.5-5.7); Albumin/Globulin Ratio 1.1 (1.1-2.2); Alkaline Phosphatase 71 Units/L (34-104); Aspartate Amino Transferase 17 Units/L (13-39); BUN/Creatinine Ratio 15 (6-26); Bilirubin,Total 0.2 mg/dL (0.3-1.0); Blood Urea Nitrogen 22 mg/dL (8-23); Carbon Dioxide 25 mEq/L (23-29); Chloride 95 mEq/L (98-107); Creatine Kinase 53 Units/L (30-223); Globulin 3.4 g/dL (2.4-3.5); Glucose 163 mg/dL (70-105); Osmolality,Calculated 285 (280-300); Potassium 3.5 mEq/L (3.5-5.1); Sodium 134 mEq/L (136-145); Total Protein 7.3 g/dL (6.4-8.9); Troponin I < 0.03 ng/mL (< 0.04); eGFR For African Americans 42 (> 60); eGFR For Non-African Americans 34 (> 60)
[2022-04-04 12:20] LABS: Bacteria,Urine Few per hpf (None-Few); Bilirubin,Urine Negative (Negative); Blood,Urine Negative (Negative); Clarity,Urine Turbid (Clear); Color,Urine Yellow (Yellow); Glucose,Urine (UA) Normal (Normal); Ketones,Urine Trace mg/dL (Negative); Leukocyte Esterase,Urine Negative (Negative); Mucus,Urine Few per lpf (None-Few); Nitrite,Urine Negative (Negative); PH,Urine 5.5 pH Units (5.0-8.0); Protein,Urine 100 mg/dL (Neg-Trace); RBC,Urine 0-3 per hpf (0-3); Specific Gravity,Urine 1.024 (1.010-1.025); Squamous Epithelial Cell,Urine Few per hpf (None-Few); Urobilinogen,Urine Normal (Normal)
[2022-04-04] MEDS ORDERED: Naloxone 0.4 MG/ML INJ IVP PRN (13:01)
[2022-04-04] MEDS ORDERED: *HR* Dextrose 50 % in Water (Syg) 50 ML SYRINGE IVP PRN (13:02)
[2022-04-04] MEDS ORDERED: D5% in Water 1,000 ML IVC PRN (13:02)
[2022-04-04] MEDS ORDERED: Dextrose Gel 15 GM/37.5 ML TUBE PO PRN ×2 (13:02)
[2022-04-04] MEDS: 0.9 % Sodium Chloride 1,000 ML IVC SCH (17:35)
[2022-04-04] MEDS: Insulin LISPRO 300 UNITS/3 ML VIAL SUBQ SCH (17:36)
[2022-04-04] MEDS: Apixaban 5 MG TABLET PO SCH (19:56)
[2022-04-04] MEDS: traZODone 50 MG TABLET PO SCH (23:37)
[2022-04-05] MEDS: 0.9 % Sodium Chloride 1,000 ML IVC SCH ×2 (06:54→08:04)
[2022-04-05] MEDS: Insulin LISPRO 300 UNITS/3 ML VIAL SUBQ SCH ×3 (08:02→17:09)
[2022-04-05] MEDS: Apixaban 5 MG TABLET PO SCH ×2 (08:04→22:06)
[2022-04-05] MEDS: Cyanocobalamin (B-12) 1,000 MCG/ML VIAL SQ SCH (08:04)
[2022-04-05] MEDS: Acetaminophen 325 MG TABLET PO PRN (10:03)
[2022-04-05 12:49] LABS: BUN/Creatinine Ratio 15 (6-26); Blood Urea Nitrogen 13 mg/dL (8-23); Calcium 7.5 mg/dL (8.6-10.3); Carbon Dioxide 23 mEq/L (23-29); Chloride 101 mEq/L (98-107); Glucose 270 mg/dL (70-105); Magnesium 1.3 mg/dL (1.6-2.6); Osmolality,Calculated 292 (280-300); Phosphorous 2.3 mg/dL (2.7-4.5); Potassium 3.3 mEq/L (3.5-5.1); Sodium 136 mEq/L (136-145); eGFR For African Americans > 60 (> 60); eGFR For Non-African Americans > 60 (> 60)
[2022-04-05] MEDS: Aspirin 81 MG TAB.CHEW PO SCH (13:05)
[2022-04-05] MEDS: carBAMazepine 200 MG TABLET PO SCH ×2 (13:05→22:06)
[2022-04-05] MEDS: Metoprolol XL (24 HR) Succ 25 MG TAB.ER.24H PO SCH (13:06)
[2022-04-05] MEDS: amLODIPine 5 MG TABLET PO SCH (13:06)
[2022-04-05] MEDS: Venlafaxine XR (24 HR) 150 MG CAP.ER.24H PO SCH (13:06)
[2022-04-05 20:11] LABS: C.difficile Toxin A/B Gene PCR Not detected (Not detect); Campylobacter by PCR Not detected (Not detect); Enteroaggregative E.coli(EAEC) Not detected (Not detect); Enteropathogenic E.coli(EPEC) Not detected (Not detect); Enterotoxigenic E.coli (ETEC) Not detected (Not detect); Plesiomonas shigelloides PCR Not detected (Not detect); Salmonella PCR Not detected (Not detect); Shig/EnteroinvasiveE coli EIEC Not detected (Not detect); Shigalike tox-prod E coli STEC Not detected (Not detect); Vibrio PCR Not detected (Not detect); Vibrio cholerae PCR Not detected (Not detect); Yersinia enterocolitica PCR Not detected (Not detect)
[2022-04-05 20:12] LABS: Adenovirus F 40/41 PCR Not detected (Not detect); Astrovirus PCR Not detected (Not detect); Cryptosporidium by PCR Not detected (Not detect); Cyclospora cayetanensis PCR Not detected (Not detect); Entamoeba histolytica PCR Not detected (Not detect); Giardia lamblia PCR Not detected (Not detect); Norovirus GI/GII PCR Not detected (Not detect); Rotavirus A PCR Not detected (Not detect); Sapovirus PCR Not detected (Not detect)
[2022-04-05] MEDS: Gabapentin 300 MG CAPSULE PO SCH (22:07)
[2022-04-05] MEDS: traZODone 50 MG TABLET PO SCH (22:07)
[2022-04-06 03:45] LABS: BUN/Creatinine Ratio 11 (6-26); Blood Urea Nitrogen 8 mg/dL (8-23); Calcium 8.1 mg/dL (8.6-10.3); Carbon Dioxide 23 mEq/L (23-29); Chloride 99 mEq/L (98-107); Glucose 119 mg/dL (70-105); Osmolality,Calculated 275 (280-300); Phosphorous 2.1 mg/dL (2.7-4.5); Sodium 133 mEq/L (136-145); eGFR For African Americans > 60 (> 60); eGFR For Non-African Americans > 60 (> 60)
[2022-04-06] MEDS: Insulin LISPRO 300 UNITS/3 ML VIAL SUBQ SCH ×3 (08:16→17:50)
[2022-04-06] MEDS: Venlafaxine XR (24 HR) 150 MG CAP.ER.24H PO SCH (08:18)
[2022-04-06] MEDS: Metoprolol XL (24 HR) Succ 25 MG TAB.ER.24H PO SCH (08:18)
[2022-04-06] MEDS: Gabapentin 300 MG CAPSULE PO SCH ×2 (08:18→20:04)
[2022-04-06] MEDS: amLODIPine 5 MG TABLET PO SCH (08:18)
[2022-04-06] MEDS: Aspirin 81 MG TAB.CHEW PO SCH (08:18)
[2022-04-06] MEDS: Apixaban 5 MG TABLET PO SCH ×2 (08:18→20:04)
[2022-04-06] MEDS: carBAMazepine 200 MG TABLET PO SCH ×2 (08:19→20:04)
[2022-04-06] MEDS: Cyanocobalamin (B-12) 1,000 MCG/ML VIAL SQ SCH (08:19)
[2022-04-06] MEDS ORDERED: Cyanocobalamin (B-12) 1,000 MCG TABLET PO SCH (09:00)
[2022-04-06] MEDS: traZODone 50 MG TABLET PO SCH (22:46)
[2022-04-07] MEDS: Apixaban 5 MG TABLET PO SCH ×2 (07:59→21:14)
[2022-04-07] MEDS: amLODIPine 5 MG TABLET PO SCH (07:59)
[2022-04-07] MEDS: Gabapentin 300 MG CAPSULE PO SCH ×2 (07:59→21:14)
[2022-04-07] MEDS: carBAMazepine 200 MG TABLET PO SCH ×2 (07:59→21:13)
[2022-04-07] MEDS: Metoprolol XL (24 HR) Succ 25 MG TAB.ER.24H PO SCH (07:59)
[2022-04-07] MEDS: Aspirin 81 MG TAB.CHEW PO SCH (07:59)
[2022-04-07] MEDS: Cyanocobalamin (B-12) 1,000 MCG/ML VIAL SQ SCH (08:00)
[2022-04-07] MEDS: Insulin LISPRO 300 UNITS/3 ML VIAL SUBQ SCH ×3 (08:00→17:06)
[2022-04-07] MEDS: Venlafaxine XR (24 HR) 150 MG CAP.ER.24H PO SCH (08:00)
[2022-04-07] MEDS: traZODone 50 MG TABLET PO SCH (21:12)
[2022-04-08] MEDS: carBAMazepine 200 MG TABLET PO SCH ×2 (07:54→20:21)
[2022-04-08] MEDS: Metoprolol XL (24 HR) Succ 25 MG TAB.ER.24H PO SCH (07:54)
[2022-04-08] MEDS: Venlafaxine XR (24 HR) 150 MG CAP.ER.24H PO SCH (07:55)
[2022-04-08] MEDS: Apixaban 5 MG TABLET PO SCH ×2 (07:55→20:21)
[2022-04-08] MEDS: Gabapentin 300 MG CAPSULE PO SCH ×2 (07:55→20:21)
[2022-04-08] MEDS: amLODIPine 5 MG TABLET PO SCH (07:55)
[2022-04-08] MEDS: Aspirin 81 MG TAB.CHEW PO SCH (07:55)
[2022-04-08] MEDS: Cyanocobalamin (B-12) 1,000 MCG/ML VIAL SQ SCH (07:55)
[2022-04-08] MEDS: Insulin LISPRO 300 UNITS/3 ML VIAL SUBQ SCH ×3 (07:58→16:19)
[2022-04-08] MEDS: Acetaminophen 325 MG TABLET PO PRN (20:21)
[2022-04-08] MEDS: traZODone 50 MG TABLET PO SCH (20:21)
[2022-04-09] MEDS ORDERED: *HR* Labetalol 20 MG/4 ML SYRINGE IVP ONE (00:51)
[2022-04-09] MEDS ORDERED: hydrALAZINE 10 MG TABLET PO ONE (02:00)
[2022-04-09] MEDS: Aspirin 81 MG TAB.CHEW PO SCH (08:28)
[2022-04-09] MEDS: Venlafaxine XR (24 HR) 150 MG CAP.ER.24H PO SCH (08:28)
[2022-04-09] MEDS: carBAMazepine 200 MG TABLET PO SCH ×2 (08:28→21:47)
[2022-04-09] MEDS: Gabapentin 300 MG CAPSULE PO SCH ×2 (08:28→21:47)
[2022-04-09] MEDS: Apixaban 5 MG TABLET PO SCH ×2 (08:28→21:47)
[2022-04-09] MEDS: Metoprolol XL (24 HR) Succ 25 MG TAB.ER.24H PO SCH (08:28)
[2022-04-09] MEDS: amLODIPine 5 MG TABLET PO SCH (08:28)
[2022-04-09] MEDS: Insulin LISPRO 300 UNITS/3 ML VIAL SUBQ SCH ×3 (08:30→17:32)
[2022-04-09] MEDS: traZODone 50 MG TABLET PO SCH (21:47)
[2022-04-10] MEDS: carBAMazepine 200 MG TABLET PO SCH ×2 (09:48→22:08)
[2022-04-10] MEDS: Venlafaxine XR (24 HR) 150 MG CAP.ER.24H PO SCH (09:48)
[2022-04-10] MEDS: Apixaban 5 MG TABLET PO SCH ×2 (09:48→22:08)
[2022-04-10] MEDS: Aspirin 81 MG TAB.CHEW PO SCH (09:48)
[2022-04-10] MEDS: Gabapentin 300 MG CAPSULE PO SCH ×2 (09:48→22:08)
[2022-04-10] MEDS: amLODIPine 5 MG TABLET PO SCH (09:48)
[2022-04-10] MEDS: Metoprolol XL (24 HR) Succ 25 MG TAB.ER.24H PO SCH (09:48)
[2022-04-10] MEDS: Insulin LISPRO 300 UNITS/3 ML VIAL SUBQ SCH ×3 (09:50→17:35)
[2022-04-10 12:01] LABS: Influenza A PCR Negative (Negative); Influenza B PCR Negative (Negative); Resp. Syncytial Virus PCR Negative (Negative)
[2022-04-10 12:09] LABS: SARS-CoV-2 by PCR (In House) Positive (Negative)
[2022-04-10] MEDS: traZODone 50 MG TABLET PO SCH (22:07)
[2022-04-10] MEDS: Acetaminophen 325 MG TABLET PO PRN (22:11)
[2022-04-11] MEDS: Insulin LISPRO 300 UNITS/3 ML VIAL SUBQ SCH ×3 (09:47→17:29)
[2022-04-11] MEDS: Metoprolol XL (24 HR) Succ 25 MG TAB.ER.24H PO SCH (09:48)
[2022-04-11] MEDS: Apixaban 5 MG TABLET PO SCH ×2 (09:48→21:42)
[2022-04-11] MEDS: amLODIPine 5 MG TABLET PO SCH (09:48)
[2022-04-11] MEDS: Gabapentin 300 MG CAPSULE PO SCH ×2 (09:48→21:42)
[2022-04-11] MEDS: Venlafaxine XR (24 HR) 150 MG CAP.ER.24H PO SCH (09:48)
[2022-04-11] MEDS: Aspirin 81 MG TAB.CHEW PO SCH (09:48)
[2022-04-11] MEDS: carBAMazepine 200 MG TABLET PO SCH ×2 (09:49→21:43)
[2022-04-11 10:11] LABS: Basophils % 0.4 %; Eosinophils # 0.1 K/mcL (0.0-0.6); Eosinophils % 1.2 %; Hematocrit 33.5 % (35.3-44.9); Hemoglobin 11.3 g/dL (11.5-15.4); Lymphocytes % 39.3 %; Mean Corpuscular HGB Conc 33.7 g/dL (31.6-35.5); Mean Corpuscular Hemoglobin 32.5 pg (28.0-33.3); Mean Corpuscular Volume 96.3 fL (83.0-100.0); Mean Platelet Volume 9.6 fL (9.4-12.4); Monocytes # 0.4 K/mcL (0.0-1.3); Monocytes % 8.3 %; Neutrophils # 2.5 K/mcL (1.6-8.9); Platelet Count 241 K/mcL (140-400); Red Blood Count 3.48 M/mcL (3.82-4.97); Red Cell Distribution Width 11.6 % (11.5-14.5); Segmented Neutrophils % 49.8 %; White Blood Count 5.1 K/mcL (4.3-11.1)
[2022-04-11 10:27] LABS: BUN/Creatinine Ratio 24 (6-26); Blood Urea Nitrogen 21 mg/dL (8-23); Calcium 8.7 mg/dL (8.6-10.3); Carbon Dioxide 33 mEq/L (23-29); Chloride 97 mEq/L (98-107); Glucose 237 mg/dL (70-105); Osmolality,Calculated 291 (280-300); Potassium 4.1 mEq/L (3.5-5.1); Sodium 135 mEq/L (136-145); eGFR For African Americans > 60 (> 60); eGFR For Non-African Americans > 60 (> 60)
[2022-04-11] MEDS: traZODone 50 MG TABLET PO SCH (21:41)
[2022-04-12] MEDS: Venlafaxine XR (24 HR) 150 MG CAP.ER.24H PO SCH (08:08)
[2022-04-12] MEDS: carBAMazepine 200 MG TABLET PO SCH (08:08)
[2022-04-12] MEDS: Apixaban 5 MG TABLET PO SCH (08:08)
[2022-04-12] MEDS: amLODIPine 5 MG TABLET PO SCH (08:08)
[2022-04-12] MEDS: Aspirin 81 MG TAB.CHEW PO SCH (08:08)
[2022-04-12] MEDS: Insulin LISPRO 300 UNITS/3 ML VIAL SUBQ SCH ×3 (08:09→16:55)
[2022-04-12] MEDS: Gabapentin 300 MG CAPSULE PO SCH (08:09)
[2022-04-12] MEDS: Metoprolol XL (24 HR) Succ 25 MG TAB.ER.24H PO SCH (08:13)
[2022-04-12 15:13] VITALS: BP 161/77; PULSE 91; TEMP 98.1; O2SAT 93
== END 2022-04-12 19:39 ==
LOC: 3BNU 09:51 → EMEROOARM 09:51 → SUATTDRO 16:17 → 3BNU 17:44
PROVIDERS: ADMIT Internal Medicine; ATTEND Registered Nurse